=== PATIENT | female | born 1990 | race Two or more races ===

== ENCOUNTER 2020-11-01 15:11 | Emergency (ER) | payer OTHER, SELFPAY ==
--- NOTE | ~2020-11-01 | CT_ITS ---
EXAMINATION: CT HEAD WITHOUT CONTRAST CLINICAL INFORMATION: Migraine for 4 days COMPARISON: None TECHNIQUE: Contiguous axial imaging was performed from the skull base to vertex without intravenous administration of contrast. This CT examination was performed using dose optimization techniques as appropriate, variously including the following: *Automated exposure control *Adjustment of mA and/or kV according to patient size (this includes techniques or standardized protocols for targeted exams where dose is matched to indication/reason for exam; i.e. extremities or head) *Use of iterative reconstruction technique DLP: 648 mGy-cm FINDINGS: There is no evidence of acute intracranial hemorrhage or territorial infarction. No abnormal mass effect or midline shift is seen. Kat to white matter differentiation is well preserved. No extra-axial fluid collections are identified. The ventricles are normal in size. There is no abnormal attenuation within the brain parenchyma. The osseous structures and soft tissues are normal. The mastoid air cells and visualized portions of the paranasal sinuses are well aerated. CT/CT head/brain wo con IMPRESSION: No acute intracranial pathology.
[2020-11-01 15:30] VITALS: BP 133/73; PULSE 113; RESP 18; TEMP 36.5; O2SAT 100; BMI 21.4
--- NOTE | 2020-11-01 17:31 | ED.HA ---
HPI - Headache General Chief Complaint: Headache Stated Complaint: headache Time Seen by Provider: 11/01/20 16:55 Source: patient Mode of arrival: ambulatory Limitations: no limitations History of Present Illness HPI Narrative: Otherwise healthy 30-year-old female who has past medical history of anxiety and depression otherwise no surgical history presenting with complaint of 4 days of headache with gradual onset and progressively getting worse improve with sleep with associated photosensitivity and now some nausea. States onset Monday with gradual frontal headache and that progressively and slowly got worse. Symptoms wax and wane. Otherwise there is no recent illness or fever. No neck pain. No chest pain. No back pain. No history of IVDA use. no recent injury. MD elicited complaint: headache Onset (ago): day(s) (4) Onset description: gradually Location: frontal and temporal Severity: moderate Quality & Timing: aching Exacerbating factors: light and noise Relieving factors: dark room and sleep Associated symptoms: none Treatments prior to arrival: other ( States she took Excedrin for migraine headache 2 days ago but made her nauseated) Related Data Previous Rx's Medication Instructions Recorded [id number]-[id number] 1 cap PO Q8H PRN #10 cap 11/01/20 [Fioricet] Allergies Allergy/AdvReac Type Severity Reaction Status Date / Time No Known Allergies Allergy Unverified 01/23/20 16:10 Review of Systems Review of Systems: Constitutional: No Weight loss, No Fever, No Chills, No Night Sweats, No Fatigue, No Malaise ENT/Mouth: No Hearing loss, No Ear Pain, No Nasal Congestion, No Sinus Pain, No Hoarseness, No sore throat, No Rhinorrhea, No Swallowing Difficulty Eyes: No Eye Pain, No Swelling, No Redness, No Foreign Body, No Discharge, No Vision Changes Cardiovascular: No Chest Pain, No SOB, No Dyspnea on Exertion, No Orthopnea, No Edema, No Palpitations Respiratory: No Cough, No Sputum, No Wheezing, No Smoke Exposure, No Dyspnea Gastrointestinal: No Nausea, No Vomiting, No Diarrhea, No Constipation, No abdominal Pain, No Hematochezia, No Melena Genitourinary: no irregular bleeding, No Dysuria, No Urinary Frequency, No Hematuria, No Urinary Incontinence, No Urgency, No Flank Pain, No Urinary Flow Changes, No Hesitancy Musculoskeletal: No joint pain, No Myalgias, No Joint Swelling Skin: No Skin Lesions, No rash Neuro: No Weakness, No Numbness, No Paresthesias, No Loss of Consciousness, No Dizziness, + Headache Psych: No Social Issues Heme/Lymph: No Bruising, No Bleeding,No Lymphadenopathy Endocrine: No Polyuria, No Polydipsia, No Temperature Intolerance Yes all other systems are reviewed and are negative [facility] Social History Social History Alcohol intake: current Alcohol intake frequency: a few times a month Patient Tobacco Use Status: Never used Tobacco Use of substances other than those prescribed or required for medical reasons: Yes Substance Use Type: Marijuana Advance Directives: No Advance Directives Information Provided: Yes Patient : No Physical Exam Vital Signs: Vital Signs: Last Vital Signs Temp 98.9 F 11/01/20 18:07 Pulse 100 11/01/20 18:07 Resp 18 11/01/20 18:07 BP 109/53 L 11/01/20 18:07 Pulse Ox 100 11/01/20 18:07 Body Mass Index 21.4 reviewed Const: Other: for sensitivity, covering her eyes General: No acute distress or intoxicated appearing Nutritional Appearance: average body habitus Orientation/consciousness: patient oriented x3 HENMT: Head: Yes normal to inspection Ears: hearing grossly normal bilaterally Eyes: General: appearance normal, both eyes and all related structures Visual Marshall: normal visual marshall by confrontation Neck: Neck: Yes normal visual inspection, Yes full ROM, No positive Brudzinski's sign, No positive Kernig's sign and No tender Thyroid: Thyroid normal Chest: Chest palpation & inspection: normal inspection of the chest Resp: Effort & Inspection: normal respiratory effort Auscultation: clear to auscultation bilaterally Cardio: Jugular venous distension: no JVD Rhythm: regular rhythm Heart sounds: S1 normal heart sound present and S2 normal heart sound present GI: Inspection: Yes normal to inspection Palpation (GI): Soft to palpation Percussion: Yes normal to percussion Auscultation: normal bowel sounds : General: Yes no CVA tenderness Back/Spine/Pelvis: Back: no CVA tenderness Skin: General skin exam: no rashes or lesions noted Neuro: General: patient oriented x3 Extrem: General: Yes normal to inspection Course Reevaluation(s) Reevaluation #1: will check labs, given no history of headache will check CRP as well as head CT rule out mass bleed, less likely will treat with IV fluids, IV Reglan and ketorolac. Will re-evaluate. Exam does not suggest acute infectious pathology. Reevaluation #2: Labs overall reassuring. CRP within normal limits, no leukocytosis. Head CT negative. After initial treatment now an hour and a half out and she sitting up in bed smiling conversing no longer has headache, photosensitivity has resolved. Will discharge with outpatient follow-up return and discharge instructions. Otherwise well nontoxic appearing stable for discharge. MDM - Headache Differential Diagnosis Differential diagnosis: Likely migraine, tension headache and headache; Unlikely subarachnoid hemorrhage, meningitis, sinusitis and postconcussion syndrome Medical Records Attestation: I reviewed the patient's medical records. Lab Data Attestation: I reviewed the patient's lab results. Result diagrams: 11/01/20 17:49 11/01/20 17:49 Labs: Lab Results 11/01/20 11/01/20 11/01/20 Range/Units 17:49 17:49 17:49 WBC 7.1 (4.8-10.8) X10*3/uL RBC 4.38 (4.20-5.50) X10*6/uL Hgb 13.2 (12.0-16.0) g/dl Hct 38.6 (37-47) % MCV 88.1 (80-98) fL MCH 30.1 (27.0-33.0) pg MCHC 34.2 (31.0-35.0) g/dl RDW 12.2 (11.0-16.0) % Plt Count 332 (160-400) X10*3/uL MPV 8.5 L (9.4-12.3) fL Immature Gran % (Auto) 0.3 (0.0-0.4) % Neut % (Auto) 71.6 (45-73) % Lymph % (Auto) 17.3 L (20-40) % [place] % (Auto) 10.1 (2-11) % Eos % (Auto) 0.4 (0-4) % Baso % (Auto) 0.3 (0-2) % Lymph # (Auto) 1.2 (1.2-4.9) X10*3/uL [place] # (Auto) 0.7 (0.1-1.2) X10*3/uL Eos # (Auto) 0.0 (0.0-0.4) X10*3/uL Baso # (Auto) 0.0 (0.0-0.2) X10*3/uL Abs Immat Gran (auto) 0.02 (0.00-0.03) X10*3/uL Absolute Neuts (auto) 5.1 (2.0-8.3) X10*3/uL Absolute Nucleated RBC 0.000 (0.0-0.012) X10*3/uL Nucleated RBC % (auto) 0.0 (0.0-0.2) /100WBC ESR 6 (0-20) MM/HR Sodium 139 (135-145) mmol/L Potassium 4.5 (3.3-5.1) mmol/L Chloride 108 (96-108) mmol/L Carbon Dioxide 22 (22-29) mmol/L Anion Gap 14 (12-20) BUN 11 (9-16) mg/dL Creatinine 0.63 (0.5-1.4) mg/dL Estim Creat Clear Calc 95.5 Estimated GFR > 60 Random Glucose 100 (60-115) mg/dL Calcium 9.9 (8.4-10.2) mg/dL Total Bilirubin 0.7 (0.0-1.0) mg/dL AST 20 (5-31) U/L ALT 10 (0-31) U/L Alkaline Phosphatase 54 (39-117) U/L C-Reactive Protein 0.10 (< or = 0.50) mg/dL Total Protein 7.7 (6.5-8.0) g/dL Albumin 4.6 (3.5-5.0) g/dL Urine Color Urine Appearance Urine pH (5.0-8.0) Ur Specific [place] (1.005-1.025) Urine Protein (NEG-TRACE) MG/DL Urine Glucose (UA) (NEG) MG/DL Urine Ketones (NEG) MG/DL Urine Blood (NEG) Urine Nitrite (NEG) Ur Leukocyte Esterase (NEG) Urine RBC (0) /HPF Urine WBC (0-4) /HPF Ur Squamous Epith Cells /LPF Urine Bacteria /LPF Urine Mucus /LPF Urine Test (NEGATIVE) COVID-19 ([facility]ES) (Negative) COVID-19 Clin Com 11/01/20 11/01/20 11/01/20 Range/Units 17:49 18:47 18:47 WBC (4.8-10.8) X10*3/uL RBC (4.20-5.50) X10*6/uL Hgb (12.0-16.0) g/dl Hct (37-47) % MCV (80-98) fL MCH (27.0-33.0) pg MCHC (31.0-35.0) g/dl RDW (11.0-16.0) % Plt Count (160-400) X10*3/uL MPV (9.4-12.3) fL Immature Gran % (Auto) (0.0-0.4) % Neut % (Auto) (45-73) % Lymph % (Auto) (20-40) % [place] % (Auto) (2-11) % Eos % (Auto) (0-4) % Baso % (Auto) (0-2) % Lymph # (Auto) (1.2-4.9) X10*3/uL [place] # (Auto) (0.1-1.2) X10*3/uL Eos # (Auto) (0.0-0.4) X10*3/uL Baso # (Auto) (0.0-0.2) X10*3/uL Abs Immat Gran (auto) (0.00-0.03) X10*3/uL Absolute Neuts (auto) (2.0-8.3) X10*3/uL Absolute Nucleated RBC (0.0-0.012) X10*3/uL Nucleated RBC % (auto) (0.0-0.2) /100WBC ESR (0-20) MM/HR Sodium (135-145) mmol/L Potassium (3.3-5.1) mmol/L Chloride (96-108) mmol/L Carbon Dioxide (22-29) mmol/L Anion Gap (12-20) BUN (9-16) mg/dL Creatinine (0.5-1.4) mg/dL Estim Creat Clear Calc Estimated GFR Random Glucose (60-115) mg/dL Calcium (8.4-10.2) mg/dL Total Bilirubin (0.0-1.0) mg/dL AST (5-31) U/L ALT (0-31) U/L Alkaline Phosphatase (39-117) U/L C-Reactive Protein (< or = 0.50) mg/dL Total Protein (6.5-8.0) g/dL Albumin (3.5-5.0) g/dL Urine Color YELLOW Urine Appearance CLEAR Urine pH 5.5 (5.0-8.0) Ur Specific [place] >= 1.030 H (1.005-1.025) Urine Protein TRACE (NEG-TRACE) MG/DL Urine Glucose (UA) NEG (NEG) MG/DL Urine Ketones 40 (NEG) MG/DL Urine Blood 3+ H (NEG) Urine Nitrite NEG (NEG) Ur Leukocyte Esterase NEG (NEG) Urine RBC 5-9 H (0) /HPF Urine WBC 0-2 (0-4) /HPF Ur Squamous Epith Cells 2+ /LPF Urine Bacteria 1+ /LPF Urine Mucus 2+ /LPF Urine Test NEGATIVE (NEGATIVE) COVID-19 ([facility]ES) Negative (Negative) COVID-19 Clin Com See Note Imaging Data CT scan - head: Radiologist's impression: [address] Scan ReportSigned Patient: Taras Squires#: [id number]: 1990Acct:[id number]/Sex: 30 / FADM Date: 11/01/20Loc: [address] Dr: Ordering Physician: Anselmo Lawson NP Date of Service: 11/01/20 Procedure(s): CT head/brain wo con Accession Number(s): [id number] cc: Anselmo Lawson NP~ EXAMINATION: CT HEAD WITHOUT CONTRAST CLINICAL INFORMATION: Migraine for 4 days COMPARISON: None TECHNIQUE: Contiguous axial imaging was performed from the skull base to vertex without intravenous administration of contrast. This CT examination was performed using dose optimization techniques as appropriate, variously including the following: *Automated exposure control *Adjustment of mA and/or kV according to patient size (this includes techniques or standardized protocols for targeted exams where dose is matched to indication/reason for exam; i.e. extremities or head) *Use of iterative reconstruction technique DLP: 648 mGy-cm FINDINGS: There is no evidence of acute intracranial hemorrhage or territorial infarction. No abnormal mass effect or midline shift is seen. Kat to white matter differentiation is well preserved. No extra-axial fluid collections are identified. The ventricles are normal in size. There is no abnormal attenuation within the brain parenchyma. The osseous structures and soft tissues are normal. The mastoid air cells and visualized portions of the paranasal sinuses are well aerated. CT/CT head/brain wo con IMPRESSION: No acute intracranial pathology. Dictated By:MICHAEL CORADO MDSigned By:<Electronically signed by MICHAEL CORADO MD in OV>11/01/201942 DD/ 1732TD/TT: Insurance Claim Representative: TF Discharge Plan Discharge Clinical Impression: Headache Patient Disposition: Home, Self-Care Instructions: Acute Headache (ED) Prescriptions: New agizetywuf-bgfdypwfrqdqc-mvdi [Fioricet] 50-300-40 mg capsule 1 cap PO Q8H PRN (Reason: pain) Qty: 10 RF: 0 Referrals: Anika Boone MD [Primary Care Provider] - 5 days Stand Alone Forms: Work/School Release
[2020-11-01 17:52] LABS: MANUAL DIFF FLAG NO
[2020-11-01] MEDS: 0.9 % Sodium Chloride 1,000 ML 999 ML IV (17:54)
[2020-11-01] MEDS: Metoclopramide HCl 10 MG/2 ML VIAL IVPUSH (17:55)
[2020-11-01] MEDS: Ketorolac Tromethamine 30 MG/ML VIAL IVPUSH (17:55)
[2020-11-01] MEDS: diphenhydrAMINE HCL 50 MG/ML VIAL 25 MG IVPUSH (17:55)
[2020-11-01 17:57] LABS: Basophils Percent Auto 0.3 % (0-2); Eosinophils Percent Auto 0.4 % (0-4); Hematocrit 38.6 % (37-47); Hemoglobin 13.2 g/dl (12.0-16.0); Imm Gran Abs Auto 0.02 X10*3/uL (0.00-0.03); Imm Gran Pct Auto 0.3 % (0.0-0.4); Lymphocytes Absolute Auto 1.2 X10*3/uL (1.2-4.9); Lymphocytes Percent Auto 17.3 % (20-40); Mean Corpuscular HGB Conc 34.2 g/dl (31.0-35.0); Mean Corpuscular Hemoglobin 30.1 pg (27.0-33.0); Mean Corpuscular Volume 88.1 fL (80-98); Mean Platelet Volume 8.5 fL (9.4-12.3); Monocytes Absolute Auto 0.7 X10*3/uL (0.1-1.2); Monocytes Percent Auto 10.1 % (2-11); Neutrophils Absolute Auto 5.1 X10*3/uL (2.0-8.3); Neutrophils Percent Auto 71.6 % (45-73); Platelet Count 332 X10*3/uL (160-400); Red Blood Count 4.38 X10*6/uL (4.20-5.50); Red Cell Distribution Width 12.2 % (11.0-16.0); White Blood Count 7.1 X10*3/uL (4.8-10.8)
[2020-11-01 18:07] VITALS: BP 109/53; PULSE 100; RESP 18; TEMP 37.2; O2SAT 100
[2020-11-01 18:07] LABS: COVID-19 Test Negative (Negative); IDNOW Serial# 9DD0AD1C
[2020-11-01 18:21] LABS: Alanine Aminotransferase 10 U/L (0-31); Albumin Level 4.6 g/dL (3.5-5.0); Alkaline Phosphatase 54 U/L (39-117); Anion Gap 14 (12-20); Aspartate Amino Transferase 20 U/L (5-31); Bilirubin Total 0.7 mg/dL (0.0-1.0); Blood Urea Nitrogen 11 mg/dL (9-16); Calcium 9.9 mg/dL (8.4-10.2); Carbon Dioxide 22 mmol/L (22-29); Chloride 108 mmol/L (96-108); Creatinine Clr Calc Pharmacy 95.5; Estimated Glomerular Filt Rate > 60; Glucose Random 100 mg/dL (60-115); Potassium 4.5 mmol/L (3.3-5.1); Sodium 139 mmol/L (135-145); Total Protein 7.7 g/dL (6.5-8.0)
[2020-11-01 18:42] LABS: Erythrocyte Sedimentation Rate 6 MM/HR (0-20)
[2020-11-01 18:55] LABS: Glucose Urine UA NEG (NEG); Leukocyte Esterase Urine NEG (NEG); Nitrite Urine NEG (NEG); PH 5.5 (5.0-8.0); Specific Gravity - Urine >= 1.030 (1.005-1.025); Urine Blood 3+ (NEG); Urine Ketones 40 MG/DL (NEG); Urine Protein TRACE MG/DL (NEG-TRACE)
[2020-11-01 18:58] LABS: Appearance Urine CLEAR; Color Urine YELLOW
[2020-11-01 18:59] LABS: UPreg QC Valid YES; Urine Pregnancy NEGATIVE (NEGATIVE)
[2020-11-01 19:11] LABS: Bacteria Urine 1+ /LPF; Squamous Epithelial Cell Urine 2+ /LPF; WBC Urine 0-2 /HPF (0-4)
[2020-11-01 19:12] LABS: Mucus Urine 2+ /LPF
== END 2020-11-01 20:16 | disposition home or self-care (01) ==
PROVIDERS: Nurse Practitioner Primary Care; Emergency Provider Internal Medicine; PCP Internal Medicine
DX: R51.9 Headache, unspecified (principal); Z20.822 Contact with and (suspected) exposure to COVID-19; F12.90 Cannabis use, unspecified, uncomplicated
CPT/HCPCS: 36415; 70450; 80053; 81001; 81025; 85025; 85652; 86140; 87635; 96361; 96374; 96375; 99284; 99285; J1200; J1885; J2765

== ENCOUNTER 2020-11-04 11:48 | Emergency (ER) | payer OTHER, SELFPAY ==
[2020-11-04 12:32] VITALS: BP 116/65; PULSE 120; RESP 18; TEMP 36.8; O2SAT 98; BMI 21.4
[2020-11-04 15:56] VITALS: BP 116/68; PULSE 111; RESP 18; TEMP 36.7; O2SAT 99
--- NOTE | 2020-11-04 16:53 | ED_ITS ---
HPI - Headache General Chief Complaint: Headache Stated Complaint: vomiting Time Seen by Provider: 11/04/20 16:39 Source: patient Mode of arrival: ambulatory Limitations: no limitations History of Present Illness HPI Narrative: patient comes emergency room complaining of a headache for a week. Patient states the light bothers her, has been complaining of nausea and vomiting. patient was seen here on November 01, treated for a headache, patient states that initially she started feeling better, but once she got home, she starting feeling worse again. Patient was sent home with a prescription of Fioricet, has been taking Fioricet, NSAID and Tylenol with no relief. Patient denies fever or chills, patient states that she has mild neck pain. Patient states she has never had a migraine before, she does not have any family history of migraine headaches. Patient denies being sick lately. MD elicited complaint: headache Related Data Previous Rx's Medication Instructions Recorded [id number]-qfpfywondqvsh-jkfk 1 cap PO Q8H PRN #10 cap 11/01/20 [Fioricet] ketorolac 10 mg PO Q6H PRN 5 Days #10 tab 11/04/20 ketorolac 10 mg PO Q6H PRN 5 Days #10 tab 11/04/20 Allergies Allergy/AdvReac Type Severity Reaction Status Date / Time No Known Allergies Allergy Unverified 01/23/20 16:10 Review of Systems Review of Systems: Constitutional : No Weight loss, No Fever, No Chills, No Night Sweats, No Fatigue, No Malaise ENT/Mouth : No Hearing loss, No Ear Pain, No Nasal Congestion, No Sinus Pain, No Hoarseness, No sore throat, No Rhinorrhea, No Swallowing Difficulty Eyes: No Eye Pain, No Swelling, No Redness, No Foreign Body, No Discharge, No Vision Changes Cardiovascular : No Chest Pain, No SOB, No Dyspnea on Exertion, No Orthopnea, No Edema, No Palpitations Respiratory : No Cough, No Sputum, No Wheezing, No Smoke Exposure, No Dyspnea Gastrointestinal : No Nausea, No Vomiting, No Diarrhea, No Constipation, No abdominal Pain, No Hematochezia, No Melena Genitourinary : no irregular bleeding, No Dysuria, No Urinary Frequency, No Hematuria, No Urinary Incontinence, No Urgency, No Flank Pain, No Urinary Flow Changes, No Hesitancy Musculoskeletal : No joint pain, No Myalgias, No Joint Swelling Skin : No Skin Lesions, No rash Neuro : No Weakness, No Numbness, No Paresthesias, Denies loss of consciousness, patient complaining of a global headache, radiating towards her neck Psych : No Anxiety/Panic, No Depression, No SI/HI/AH/VH, No Social Issues, Heme/Lymph: No Bruising, No Bleeding,No Lymphadenopathy Endocrine : No Polyuria, No Polydipsia, No Temperature Intolerance [facility] Social History Social History Alcohol intake: current Alcohol intake frequency: does not drink Patient Tobacco Use Status: Never used Tobacco Use of substances other than those prescribed or required for medical reasons: Yes Substance Use Type: Marijuana Advance Directives: No Advance Directives Information Provided: Yes Physical Exam Vital Signs: Vital Signs: Last Vital Signs Temp 98.5 F 11/04/20 18:03 Pulse 108 H 11/04/20 18:03 Resp 16 11/04/20 18:03 BP 105/42 L 11/04/20 18:03 Pulse Ox 100 11/04/20 18:03 Body Mass Index 21.4 Appearance: Alert. Oriented X3. No acute distress. Eyes: Pupils equal, round and reactive to light. positive photophobia ENT: Pharynx normal. Neck: Normal inspection. Neck supple. No lymph nodes noted. No crepitus CVS: Normal heart rate and rhythm. Pulses normal. Normal S1 and S2 Respiratory: No respiratory distress. Breath sounds normal. No Wheezing. No rales Abdomen: Soft and nontender. No rigidity. No distention. Skin: Skin warm and dry. Normal skin color. Normal skin turgor. Extremities: No lower extremity edema. No lower extremity edema. No Laceration s. No Rash Neuro: Oriented X 3. No motor deficit. No sensory deficit. Moving all extermities. No slurred speech. Course Course Course Narrative: I discussed with the patient that we will repeat the migraine treatment. however, if there is no improvement, lumbar puncture may be needed. at this time, 19:11, patient states that she feels much better, she feels a little strange but has significant improvement. Patient states that the headache is 3 or 4/10, feels much better, talking on the phone, No longer having photophobia, no longer having neck tension/pain patient was given 1 dose of p.o. of sumatriptan, patient feeling better. Patient is for discharge MDM - Headache Lab Data Result diagrams: 11/04/20 16:59 11/04/20 16:59 Labs: Lab Results 11/04/20 11/04/20 Range/Units 16:59 16:59 WBC 5.0 (4.8-10.8) X10*3/uL RBC 4.18 L (4.20-5.50) X10*6/uL Hgb 12.3 (12.0-16.0) g/dl Hct 36.9 L (37-47) % MCV 88.3 (80-98) fL MCH 29.4 (27.0-33.0) pg MCHC 33.3 (31.0-35.0) g/dl RDW 12.0 (11.0-16.0) % Plt Count 298 (160-400) X10*3/uL MPV 8.3 L (9.4-12.3) fL Immature Gran % (Auto) 0.4 (0.0-0.4) % Neut % (Auto) 49.6 (45-73) % Lymph % (Auto) 34.2 (20-40) % [place] % (Auto) 15.2 H (2-11) % Eos % (Auto) 0.2 (0-4) % Baso % (Auto) 0.4 (0-2) % Lymph # (Auto) 1.7 (1.2-4.9) X10*3/uL [place] # (Auto) 0.8 (0.1-1.2) X10*3/uL Eos # (Auto) 0.0 (0.0-0.4) X10*3/uL Baso # (Auto) 0.0 (0.0-0.2) X10*3/uL Abs Immat Gran (auto) 0.02 (0.00-0.03) X10*3/uL Absolute Neuts (auto) 2.5 (2.0-8.3) X10*3/uL Absolute Nucleated RBC 0.000 (0.0-0.012) X10*3/uL Nucleated RBC % (auto) 0.0 (0.0-0.2) /100WBC Sodium 138 (135-145) mmol/L Potassium 4.3 (3.3-5.1) mmol/L Chloride 109 H (96-108) mmol/L Carbon Dioxide 17 L (22-29) mmol/L Anion Gap 16 (12-20) BUN 12 (9-16) mg/dL Creatinine 0.67 (0.5-1.4) mg/dL Estim Creat Clear Calc 89.8 Estimated GFR > 60 Random Glucose 99 (60-115) mg/dL Calcium 9.5 (8.4-10.2) mg/dL Total Bilirubin 0.5 (0.0-1.0) mg/dL Direct Bilirubin 0.2 (0.0-0.5) mg/dL AST 13 (5-31) U/L ALT 9 (0-31) U/L Alkaline Phosphatase 57 (39-117) U/L Total Protein 7.0 (6.5-8.0) g/dL Albumin 4.3 (3.5-5.0) g/dL Beta HCG, Quant < 2 mIU/mL Discharge Plan Discharge Clinical Impression: Migraine Patient Disposition: Home, Self-Care Instructions: Migraine Headache (ED) Additional Instructions: Please follow-up with your primary care physician tomorrow. If you have any worsening or new symptoms, please return to the emergency room or call 911 Prescriptions: New ketorolac 10 mg tablet 10 mg PO Q6H PRN (Reason: pain) 5 Days Qty: 10 RF: 0 ketorolac 10 mg tablet 10 mg PO Q6H PRN (Reason: pain) 5 Days Qty: 10 RF: 0 No Action kgbpkifadl-ohyfhafhkigfu-olhz [Fioricet] 50-300-40 mg capsule 1 cap PO Q8H PRN (Reason: pain) Qty: 10 RF: 0
[2020-11-04 17:03] LABS: MANUAL DIFF FLAG NO
[2020-11-04] MEDS: diphenhydrAMINE HCL 50 MG/ML VIAL IVPUSH (17:04)
[2020-11-04] MEDS: Ketorolac Tromethamine 30 MG/ML VIAL IVPUSH (17:04)
[2020-11-04] MEDS: 0.9 % Sodium Chloride 1,000 ML 999 ML IVCONT (17:04)
[2020-11-04] MEDS: Metoclopramide HCl 10 MG/2 ML VIAL IVPUSH (17:04)
[2020-11-04 17:06] LABS: Basophils Percent Auto 0.4 % (0-2); Eosinophils Percent Auto 0.2 % (0-4); Hematocrit 36.9 % (37-47); Hemoglobin 12.3 g/dl (12.0-16.0); Imm Gran Abs Auto 0.02 X10*3/uL (0.00-0.03); Imm Gran Pct Auto 0.4 % (0.0-0.4); Lymphocytes Absolute Auto 1.7 X10*3/uL (1.2-4.9); Lymphocytes Percent Auto 34.2 % (20-40); Mean Corpuscular HGB Conc 33.3 g/dl (31.0-35.0); Mean Corpuscular Hemoglobin 29.4 pg (27.0-33.0); Mean Corpuscular Volume 88.3 fL (80-98); Mean Platelet Volume 8.3 fL (9.4-12.3); Monocytes Absolute Auto 0.8 X10*3/uL (0.1-1.2); Monocytes Percent Auto 15.2 % (2-11); Neutrophils Absolute Auto 2.5 X10*3/uL (2.0-8.3); Neutrophils Percent Auto 49.6 % (45-73); Platelet Count 298 X10*3/uL (160-400); Red Blood Count 4.18 X10*6/uL (4.20-5.50)
[2020-11-04 17:36] LABS: Alanine Aminotransferase 9 U/L (0-31); Albumin Level 4.3 g/dL (3.5-5.0); Alkaline Phosphatase 57 U/L (39-117); Anion Gap 16 (12-20); Aspartate Amino Transferase 13 U/L (5-31); Bilirubin Direct 0.2 mg/dL (0.0-0.5); Bilirubin Total 0.5 mg/dL (0.0-1.0); Blood Urea Nitrogen 12 mg/dL (9-16); Calcium 9.5 mg/dL (8.4-10.2); Carbon Dioxide 17 mmol/L (22-29); Chloride 109 mmol/L (96-108); Creatinine Clr Calc Pharmacy 89.8; Estimated Glomerular Filt Rate > 60; Glucose Random 99 mg/dL (60-115); Potassium 4.3 mmol/L (3.3-5.1); Sodium 138 mmol/L (135-145)
[2020-11-04 17:42] LABS: HCG Quantitative < 2 mIU/mL
[2020-11-04 18:03] VITALS: BP 105/42; PULSE 108; RESP 16; TEMP 36.9; O2SAT 100
--- NOTE | 2020-11-04 19:34 | PC.NURSE ---
Spoke with Kurt (from pharmacy) to bring Imitrex 100mg to ED. Medication not available in ED Pyxis. Plan to medicate upon receipt.
[2020-11-04] MEDS: SUMAtriptan succinate 100 MG TABLET PO (20:15)
== END 2020-11-04 21:22 | disposition home or self-care (01) ==
PROVIDERS: Emergency Provider Emergency Medicine; PCP Internal Medicine
DX: G43.009 Migraine without aura, not intractable, without status migrainosus (principal)
CPT/HCPCS: 36415; 80048; 80076; 84702; 85025; 96361; 96374; 96375; 99284; J1200; J1885; J2765

== ENCOUNTER 2020-11-06 23:41 | Emergency (ER) | payer OTHER, SELFPAY ==
[2020-11-07 00:11] VITALS: BP 131/76; PULSE 122; RESP 18; TEMP 36.6; O2SAT 98; BMI 19.9
[2020-11-07] MEDS: 0.9 % Sodium Chloride 1,000 ML 999 ML IV ×2 (00:37→01:52)
[2020-11-07 00:43] LABS: Basophils Percent Auto 0.1 % (0-2); Hematocrit 38.4 % (37-47); Hemoglobin 13.1 g/dl (12.0-16.0); Imm Gran Abs Auto 0.03 X10*3/uL (0.00-0.03); Imm Gran Pct Auto 0.4 % (0.0-0.4); Lymphocytes Absolute Auto 0.5 X10*3/uL (1.2-4.9); Lymphocytes Percent Auto 6.9 % (20-40); Mean Corpuscular HGB Conc 34.1 g/dl (31.0-35.0); Mean Corpuscular Hemoglobin 29.8 pg (27.0-33.0); Mean Corpuscular Volume 87.5 fL (80-98); Mean Platelet Volume 8.5 fL (9.4-12.3); Monocytes Absolute Auto 0.1 X10*3/uL (0.1-1.2); Monocytes Percent Auto 1.6 % (2-11); Neutrophils Absolute Auto 6.9 X10*3/uL (2.0-8.3); Platelet Count 336 X10*3/uL (160-400); Red Blood Count 4.39 X10*6/uL (4.20-5.50); Red Cell Distribution Width 11.9 % (11.0-16.0); SCAN SMEAR FLAG 1; White Blood Count 7.5 X10*3/uL (4.8-10.8)
[2020-11-07 00:49] LABS: MANUAL DIFF FLAG SCAN
[2020-11-07 01:06] LABS: SLIDE REVIEW VERIFIED
--- NOTE | 2020-11-07 01:29 | ED_ITS ---
HPI - Nausea/Vomiting/Diarrhea General Chief complaint: Headache Stated complaint: headache/vomiting Time Seen by Provider: 11/07/20 01:29 Source: patient and family Mode of arrival: ambulatory History of Present Illness HPI Narrative: 30-year-old female who presents with 1 week of intermittent nausea, vomiting without abdominal pain or diarrhea and patient denies any urinary pain/ burning / frequency. In addition, patient denies any ear pain and states that the sore throat only occurred after the multiple episodes of nausea and vomiting. Otherwise, she denies any shortness of breath, chest pain/palpitations. Related Data Home Medications Medication Instructions Recorded Confirmed citalopram 10 mg tablet 10 mg PO DAILY 11/06/20 11/06/20 hydroxyzine HCl 25 mg tablet 25 mg PO DAILY 11/06/20 11/06/20 Previous Rx's Medication Instructions Recorded ketorolac 10 mg PO Q6H PRN 5 Days #10 tab 11/04/20 ketorolac 10 mg PO Q6H PRN 5 Days #10 tab 11/04/20 azithromycin 250 mg tablet See Rx Instructions PO .COMPLEX #6 11/06/20 tab prednisone 20 mg tablet 20 mg PO .COMPLEX #18 tab 11/06/20 prochlorperazine maleate 10 mg 10 mg PO Q8H PRN #20 tab 11/06/20 tablet Allergies Allergy/AdvReac Type Severity Reaction Status Date / Time No Known Allergies Allergy Verified 11/07/20 00:19 Review of Systems Review of Systems: Pertinent positives and negatives as stated in HPI 10 point review of systems is otherwise negative. PMFSH Past Medical History Source: nursing notes reviewed Social History Social History Alcohol intake: current Alcohol intake frequency: does not drink Patient Tobacco Use Status: Never used Tobacco Substance Use Type: Marijuana Advance Directives: No Advance Directives Information Provided: No Patient : No Physical Exam Vital Signs: Vital Signs: Last Vital Signs Temp 97.9 F 11/07/20 00:11 Pulse 103 H 11/07/20 02:35 Resp 18 11/07/20 02:35 BP 104/45 L 11/07/20 02:35 Pulse Ox 100 11/07/20 02:35 Body Mass Index 19.9 VITAL SIGNS: Reviewed. GENERAL: Well developed, well nourished, in no acute distress. HEAD: Normocephalic/atraumatic EYES: PERRLA, EOMI OROPHARYNX: no oral lesions noted, posterior pharynx clear , dry mucosa NECK: Supple, no adenopathy LUNGS: Normal breath sounds. No adventitious sounds or accessory muscle use. SpO2<98> CARDIOVASCULAR: Regular rate and rhythm without noted murmurs ABDOMEN: Soft, non-tender, non-distended with bowel sounds. SKIN: Inspection of the skin reveals no rashes NEUROLOGIC: Alert and oriented x 4. Course Course Course Narrative: 30-year-old female with multiple episodes of nausea and vomiting suspect may be marijuana related and likely has subsequent dehydration. Review of all investigations without acute findings and on re-evaluation patient's headache has resolved and she is no longer nauseous. She has tolerated oral intake and will be discharged home in stable condition with instructions to increase her oral hydration. MDM - Nausea/Vomiting/Diarrhea Lab Data Result diagrams: 11/07/20 00:34 11/07/20 00:34 Labs: Lab Results 11/07/20 11/07/20 11/07/20 Range/Units 00:34 00:34 02:06 WBC 7.5 (4.8-10.8) X10*3/uL RBC 4.39 (4.20-5.50) X10*6/uL Hgb 13.1 (12.0-16.0) g/dl Hct 38.4 (37-47) % MCV 87.5 (80-98) fL MCH 29.8 (27.0-33.0) pg MCHC 34.1 (31.0-35.0) g/dl RDW 11.9 (11.0-16.0) % Plt Count 336 (160-400) X10*3/uL MPV 8.5 L (9.4-12.3) fL Immature Gran % (Auto) 0.4 (0.0-0.4) % Neut % (Auto) 91.0 H (45-73) % Lymph % (Auto) 6.9 L (20-40) % [place] % (Auto) 1.6 L (2-11) % Eos % (Auto) 0.0 (0-4) % Baso % (Auto) 0.1 (0-2) % Lymph # (Auto) 0.5 L (1.2-4.9) X10*3/uL [place] # (Auto) 0.1 (0.1-1.2) X10*3/uL Eos # (Auto) 0.0 (0.0-0.4) X10*3/uL Baso # (Auto) 0.0 (0.0-0.2) X10*3/uL Abs Immat Gran (auto) 0.03 (0.00-0.03) X10*3/uL Absolute Neuts (auto) 6.9 (2.0-8.3) X10*3/uL Absolute Nucleated RBC 0.000 (0.0-0.012) X10*3/uL Nucleated RBC % (auto) 0.0 (0.0-0.2) /100WBC Smear Tech's Comments VERIFIED Sodium 136 (135-145) mmol/L Potassium 4.6 (3.3-5.1) mmol/L Chloride 109 H (96-108) mmol/L Carbon Dioxide 11 L (22-29) mmol/L Anion Gap 21 H (12-20) BUN 11 (9-16) mg/dL Creatinine 0.66 (0.5-1.4) mg/dL Estim Creat Clear Calc 91.1 Estimated GFR > 60 Random Glucose 84 (60-115) mg/dL Calcium 9.9 (8.4-10.2) mg/dL Urine Color Urine Appearance Urine pH (5.0-8.0) Ur Specific [place] (1.005-1.025) Urine Protein (NEG-TRACE) MG/DL Urine Glucose (UA) (NEG) MG/DL Urine Ketones (NEG) MG/DL Urine Blood (NEG) Urine Nitrite (NEG) Ur Leukocyte Esterase (NEG) Urine RBC (0) /HPF Urine WBC (0-4) /HPF Ur Squamous Epith Cells /LPF Urine Bacteria /LPF Urine Mucus /LPF Urine Test NEGATIVE (NEGATIVE) 11/07/20 Range/Units 02:06 WBC (4.8-10.8) X10*3/uL RBC (4.20-5.50) X10*6/uL Hgb (12.0-16.0) g/dl Hct (37-47) % MCV (80-98) fL MCH (27.0-33.0) pg MCHC (31.0-35.0) g/dl RDW (11.0-16.0) % Plt Count (160-400) X10*3/uL MPV (9.4-12.3) fL Immature Gran % (Auto) (0.0-0.4) % Neut % (Auto) (45-73) % Lymph % (Auto) (20-40) % [place] % (Auto) (2-11) % Eos % (Auto) (0-4) % Baso % (Auto) (0-2) % Lymph # (Auto) (1.2-4.9) X10*3/uL [place] # (Auto) (0.1-1.2) X10*3/uL Eos # (Auto) (0.0-0.4) X10*3/uL Baso # (Auto) (0.0-0.2) X10*3/uL Abs Immat Gran (auto) (0.00-0.03) X10*3/uL Absolute Neuts (auto) (2.0-8.3) X10*3/uL Absolute Nucleated RBC (0.0-0.012) X10*3/uL Nucleated RBC % (auto) (0.0-0.2) /100WBC Smear Tech's Comments Sodium (135-145) mmol/L Potassium (3.3-5.1) mmol/L Chloride (96-108) mmol/L Carbon Dioxide (22-29) mmol/L Anion Gap (12-20) BUN (9-16) mg/dL Creatinine (0.5-1.4) mg/dL Estim Creat Clear Calc Estimated GFR Random Glucose (60-115) mg/dL Calcium (8.4-10.2) mg/dL Urine Color YELLOW Urine Appearance CLEAR Urine pH 6.0 (5.0-8.0) Ur Specific [place] >= 1.030 H (1.005-1.025) Urine Protein TRACE (NEG-TRACE) MG/DL Urine Glucose (UA) NEG (NEG) MG/DL Urine Ketones >=80 (NEG) MG/DL Urine Blood 3+ H (NEG) Urine Nitrite NEG (NEG) Ur Leukocyte Esterase NEG (NEG) Urine RBC 5-9 H (0) /HPF Urine WBC 0-2 (0-4) /HPF Ur Squamous Epith Cells TRACE /LPF Urine Bacteria TRACE /LPF Urine Mucus 1+ /LPF Urine Test (NEGATIVE) Discharge Plan Discharge Clinical Impression: Headache, Nausea & vomiting Patient Disposition: Home, Self-Care Instructions: General Headache (ED), Acute Nausea and Vomiting (ED) Additional Instructions: 1. Recommend continuing with the medications you have been prescribed by Urgent Care for your nausea and headache. 2. Increase fluid hydration especially with water over the next 1-2 days. 3. Please follow-up with your primary care provider in the next 2-3 days for re- evaluation. Return to the ER for acute worsening of symptoms. Prescriptions: No Action ketorolac 10 mg tablet 10 mg PO Q6H PRN (Reason: pain) 5 Days Qty: 10 RF: 0 ketorolac 10 mg tablet 10 mg PO Q6H PRN (Reason: pain) 5 Days Qty: 10 RF: 0 citalopram 10 mg tablet 10 mg PO DAILY RF: 0 hydroxyzine HCl 25 mg tablet 25 mg PO DAILY RF: 0 prednisone 20 mg tablet 20 mg PO .COMPLEX Qty: 18 RF: 0 azithromycin 250 mg tablet See Rx Instructions PO .COMPLEX Qty: 6 RF: 0 prochlorperazine maleate [Compazine] 10 mg tablet 10 mg PO Q8H PRN (Reason: nausea and vomiting) Qty: 20 RF: 0 Referrals: Anika Boone MD [Primary Care Provider] - 2 days
[2020-11-07 01:39] LABS: Anion Gap 21 (12-20); Blood Urea Nitrogen 11 mg/dL (9-16); Calcium 9.9 mg/dL (8.4-10.2); Carbon Dioxide 11 mmol/L (22-29); Chloride 109 mmol/L (96-108); Creatinine Clr Calc Pharmacy 91.1; Estimated Glomerular Filt Rate > 60; Glucose Random 84 mg/dL (60-115); Potassium 4.6 mmol/L (3.3-5.1); Sodium 136 mmol/L (135-145)
[2020-11-07] MEDS: Metoclopramide HCl 10 MG/2 ML VIAL IVPUSH (01:52)
[2020-11-07] MEDS: Ketorolac Tromethamine 15 MG/ML VIAL IVPUSH (01:52)
[2020-11-07] MEDS: diphenhydrAMINE HCL 50 MG/ML VIAL 25 MG IVPUSH (01:52)
[2020-11-07] MEDS: ondansetron HCL 4 MG/2 ML VIAL IVPUSH (01:52)
[2020-11-07 02:28] LABS: Glucose Urine UA NEG (NEG); Leukocyte Esterase Urine NEG (NEG); Nitrite Urine NEG (NEG); Specific Gravity - Urine >= 1.030 (1.005-1.025); Urine Blood 3+ (NEG); Urine Ketones >=80 MG/DL (NEG); Urine Protein TRACE MG/DL (NEG-TRACE)
[2020-11-07 02:33] LABS: Appearance Urine CLEAR; Color Urine YELLOW
[2020-11-07 02:35] VITALS: BP 104/45; PULSE 103; RESP 18; O2SAT 100
[2020-11-07 02:43] LABS: Bacteria Urine TRACE /LPF; Mucus Urine 1+ /LPF; Squamous Epithelial Cell Urine TRACE /LPF; WBC Urine 0-2 /HPF (0-4)
[2020-11-07 02:44] LABS: UPreg QC Valid YES; Urine Pregnancy NEGATIVE (NEGATIVE)
== END 2020-11-07 03:26 | disposition home or self-care (01) ==
PROVIDERS: Internal Medicine; Emergency Provider Student in an Organized Health Care Education/Training Program; PCP Internal Medicine
DX: R11.2 Nausea with vomiting, unspecified (principal); R51.9 Headache, unspecified
CPT/HCPCS: 36415; 80048; 81001; 81025; 85025; 96361; 96374; 96375; 99284; J1200; J1885; J2405; J2765

== ENCOUNTER 2020-11-08 08:25 | Inpatient (IN) | payer OTHER, SELFPAY ==
[2020-11-08] VITALS (7 sets, daily range): BP systolic 104–133; BP diastolic 50–76; PULSE 90–131; RESP 14–18; TEMP 36.1–36.9; O2SAT 98–100; BMI 20.2
--- NOTE | ~2020-11-08 | CT_ITS ---
EXAMINATION: CT HEAD WITH/WITHOUT CONTRAST CLINICAL INFORMATION: Nausea, vomiting, photophobia. Rule out cavernous sinus thrombosis, masses, infection. COMPARISON: CT head 11/01/2020. TECHNIQUE: Contiguous axial imaging was performed from the skull base to vertex before and after the administration of 85 mL of Omnipaque [address] examination was performed using dose optimization techniques as appropriate, variously including the following: *Automated exposure control *Adjustment of mA and/or kV according to patient size (this includes techniques or standardized protocols for targeted exams where dose is matched to indication/reason for exam; i.e. extremities or head) *Use of iterative reconstruction technique DLP: 1281 mGy-cm FINDINGS: There is no evidence of acute intracranial hemorrhage or territorial infarction. No abnormal mass effect or midline shift is seen. Kat to white matter differentiation is well preserved. No extra-axial fluid collections are identified. There is no abnormal enhancement. Normal enhancement of the [place]. No evidence of cavernous sinus thrombosis. No evidence of cerebral venous thrombosis. The left transverse sinus is hypoplastic. The ventricles are normal in size. There is no abnormal attenuation within the brain parenchyma. The osseous structures and soft tissues are normal. The mastoid air cells and visualized portions of the paranasal sinuses are well aerated. CT/CT head/brain wo/w con IMPRESSION: No acute intracranial pathology. If the patient has continued symptoms, MRI could be obtained for further assessment.
[2020-11-08] MEDS: 0.9 % Sodium Chloride 1,000 ML 999 ML IVCONT ×2 (08:50→09:40)
--- NOTE | 2020-11-08 09:29 | ED.NAVMDI ---
HPI - Nausea/Vomiting/Diarrhea General Chief complaint: Nausea/Vomiting/Diarrhea Stated complaint: throwing up for the past week, blood Time Seen by Provider: 11/08/20 09:17 Source: patient Mode of arrival: ambulatory History of Present Illness HPI Narrative: THIS IS A 30 YEARS OLD FEMALE PRESENTED TO EMERGENCY DEPARTMENT WITH A CHIEF COMPLAIN ON NAUSEA AND VOMITING SHE WAS SEEN YESTERDAY IN THE EMERGENCY ROOM [facility] SHOWED THAT SHE HAD METABOLIC ACIDOSIS WITH ANION GAP. TODAY RETURN BECAUSE SHE IS NO BETTER MD elicited complaint: nausea and vomiting Onset (ago): day(s) (3) Description of vomiting: bilious Associated nausea: Yes Associated abdominal pain: No Related Data Home Medications Medication Instructions Recorded Confirmed citalopram 10 mg tablet 10 mg PO DAILY 11/06/20 11/06/20 hydroxyzine HCl 25 mg tablet 25 mg PO DAILY 11/06/20 11/06/20 Previous Rx's Medication Instructions Recorded ketorolac 10 mg PO Q6H PRN 5 Days #10 tab 11/04/20 ketorolac 10 mg PO Q6H PRN 5 Days #10 tab 11/04/20 azithromycin 250 mg tablet See Rx Instructions PO .COMPLEX #6 11/06/20 tab prednisone 20 mg tablet 20 mg PO .COMPLEX #18 tab 11/06/20 prochlorperazine maleate 10 mg 10 mg PO Q8H PRN #20 tab 11/06/20 tablet Allergies Allergy/AdvReac Type Severity Reaction Status Date / Time No Known Allergies Allergy Verified 11/07/20 00:19 Review of Systems Review of Systems: Yes all other systems are reviewed and are negative Cardiovascular: Cardiovascular: Reports no additional cardiovascular complaints Respiratory: Respiratory: Reports no additional respiratory complaints and Denies cough Gastrointestinal: Gastrointestinal: Reports nausea and Reports vomiting Psychiatric: Psychiatric: Reports anxiety [facility] Social History Social History Alcohol intake: never Patient Tobacco Use Status: Never used Tobacco Substance Use Type: Marijuana Advance Directives: Yes Advance Directives Information Provided: No Advance Directives on File: No Physical Exam Vital Signs: Vital Signs: Last Vital Signs Temp 98.4 F 11/08/20 08:34 Pulse 131 H 11/08/20 08:34 Resp 18 11/08/20 08:34 BP 119/76 11/08/20 08:34 Pulse Ox 100 11/08/20 08:34 Body Mass Index 20.2 Const: General: cooperative Orientation/consciousness: oriented to person, oriented to time and patient oriented x3 HENMT: Head: Yes normal to inspection and No Ramirez's sign Eyes: General: appearance normal, both eyes and all related structures Visual Marshall: normal visual marshall by confrontation Conjunctivae: conjunctivae normal Sclerae: sclerae normal Neck: Neck: Yes normal visual inspection, Yes full ROM and Yes no lymphadenopathy Chest: Chest palpation & inspection: normal inspection of the chest Resp: Effort & Inspection: normal respiratory effort Auscultation: clear to auscultation bilaterally Cardio: Jugular venous distension: no JVD Rate: regular rate Rhythm: regular rhythm GI: Inspection: Yes normal to inspection Palpation (GI): Soft to palpation, nontender and no guarding Skin: General skin exam: no rashes or lesions noted, elasticity normal and turgor normal Neuro: General: oriented to person, oriented to place, oriented to time and patient oriented x3 Extrem: General: Yes normal to inspection and Yes full ROM Course Course Course Narrative: I discussed the case with the testing machine operator Dr Osman Fierro he recommend to start the patient on bicarbonate with D5W. patient denies any toxic ingestion, will add bhydroxibutirrate and lactic acid. The because this is the 3rd visit to the emergency department including yesterday will admit the patient MDM - Nausea/Vomiting/Diarrhea Lab Data Result diagrams: 11/08/20 09:33 11/08/20 09:33 Labs: Lab Results 11/08/20 11/08/20 11/08/20 Range/Units 09:33 09:33 09:53 WBC 9.3 (4.8-10.8) X10*3/uL RBC 4.45 (4.20-5.50) X10*6/uL Hgb 13.5 (12.0-16.0) g/dl Hct 39.7 (37-47) % MCV 89.2 (80-98) fL MCH 30.3 (27.0-33.0) pg MCHC 34.0 (31.0-35.0) g/dl RDW 11.9 (11.0-16.0) % Plt Count 421 H D (160-400) X10*3/uL MPV 8.9 L (9.4-12.3) fL Immature Gran % (Auto) 0.4 (0.0-0.4) % Neut % (Auto) 82.1 H (45-73) % Lymph % (Auto) 11.1 L (20-40) % [place] % (Auto) 6.1 (2-11) % Eos % (Auto) 0.0 (0-4) % Baso % (Auto) 0.3 (0-2) % Lymph # (Auto) 1.0 L (1.2-4.9) X10*3/uL [place] # (Auto) 0.6 (0.1-1.2) X10*3/uL Eos # (Auto) 0.0 (0.0-0.4) X10*3/uL Baso # (Auto) 0.0 (0.0-0.2) X10*3/uL Abs Immat Gran (auto) 0.04 H (0.00-0.03) X10*3/uL Absolute Neuts (auto) 7.6 (2.0-8.3) X10*3/uL Absolute Nucleated RBC 0.000 (0.0-0.012) X10*3/uL Nucleated RBC % (auto) 0.0 (0.0-0.2) /100WBC Sodium 138 (135-145) mmol/L Potassium 4.4 (3.3-5.1) mmol/L Chloride 108 (96-108) mmol/L Carbon Dioxide 10 L* (22-29) mmol/L Anion Gap 24 H (12-20) BUN 12 (9-16) mg/dL Creatinine 0.76 (0.5-1.4) mg/dL Estim Creat Clear Calc 79.1 Estimated GFR > 60 Random Glucose 92 (60-115) mg/dL Calcium 10.1 (8.4-10.2) mg/dL Total Bilirubin 0.6 (0.0-1.0) mg/dL Direct Bilirubin 0.2 (0.0-0.5) mg/dL AST 15 (5-31) U/L ALT 15 (0-31) U/L Alkaline Phosphatase 58 (39-117) U/L Total Protein 7.8 (6.5-8.0) g/dL Albumin 4.6 (3.5-5.0) g/dL Lipase 23 (8-78) U/L Beta HCG, Quant < 2 mIU/mL Urine Color YELLOW Urine Appearance HAZY Urine pH 6.0 (5.0-8.0) Ur Specific [place] >= 1.030 H (1.005-1.025) Urine Protein TRACE (NEG-TRACE) MG/DL Urine Glucose (UA) NEG (NEG) MG/DL Urine Ketones >=80 (NEG) MG/DL Urine Blood 2+ H (NEG) Urine Nitrite NEG (NEG) Ur Leukocyte Esterase NEG (NEG) Urine RBC 5-9 H (0) /HPF Urine WBC 0-2 (0-4) /HPF Ur Squamous Epith Cells 1+ /LPF Urine Bacteria 1+ /LPF Urine Mucus 1+ /LPF Discharge Plan Discharge Clinical Impression: Increased anion gap metabolic acidosis, Vomiting Prescriptions: No Action ketorolac 10 mg tablet 10 mg PO Q6H PRN (Reason: pain) 5 Days Qty: 10 RF: 0 ketorolac 10 mg tablet 10 mg PO Q6H PRN (Reason: pain) 5 Days Qty: 10 RF: 0 citalopram 10 mg tablet 10 mg PO DAILY RF: 0 hydroxyzine HCl 25 mg tablet 25 mg PO DAILY RF: 0 prednisone 20 mg tablet 20 mg PO .COMPLEX Qty: 18 RF: 0 azithromycin 250 mg tablet See Rx Instructions PO .COMPLEX Qty: 6 RF: 0 prochlorperazine maleate [Compazine] 10 mg tablet 10 mg PO Q8H PRN (Reason: nausea and vomiting) Qty: 20 RF: 0
[2020-11-08 09:37] LABS: Basophils Percent Auto 0.3 % (0-2); Hematocrit 39.7 % (37-47); Hemoglobin 13.5 g/dl (12.0-16.0); Imm Gran Abs Auto 0.04 X10*3/uL (0.00-0.03); Imm Gran Pct Auto 0.4 % (0.0-0.4); Lymphocytes Percent Auto 11.1 % (20-40); MANUAL DIFF FLAG NO; Mean Corpuscular Hemoglobin 30.3 pg (27.0-33.0); Mean Corpuscular Volume 89.2 fL (80-98); Mean Platelet Volume 8.9 fL (9.4-12.3); Monocytes Absolute Auto 0.6 X10*3/uL (0.1-1.2); Monocytes Percent Auto 6.1 % (2-11); Neutrophils Absolute Auto 7.6 X10*3/uL (2.0-8.3); Neutrophils Percent Auto 82.1 % (45-73); Platelet Count 421 X10*3/uL (160-400); Red Blood Count 4.45 X10*6/uL (4.20-5.50); Red Cell Distribution Width 11.9 % (11.0-16.0); White Blood Count 9.3 X10*3/uL (4.8-10.8)
[2020-11-08] MEDS: diphenhydrAMINE HCL 50 MG/ML VIAL 12.5 MG IVPUSH (09:40)
[2020-11-08] MEDS: Metoclopramide HCl 10 MG/2 ML VIAL IVPUSH (09:40)
[2020-11-08 09:59] LABS: Glucose Urine UA NEG (NEG); Leukocyte Esterase Urine NEG (NEG); Nitrite Urine NEG (NEG); Specific Gravity - Urine >= 1.030 (1.005-1.025); Urine Blood 2+ (NEG); Urine Ketones >=80 MG/DL (NEG); Urine Protein TRACE MG/DL (NEG-TRACE)
[2020-11-08 10:00] LABS: Appearance Urine HAZY; Color Urine YELLOW
[2020-11-08 10:06] LABS: Bacteria Urine 1+ /LPF; Mucus Urine 1+ /LPF; Squamous Epithelial Cell Urine 1+ /LPF; WBC Urine 0-2 /HPF (0-4)
[2020-11-08 10:08] LABS: HCG Quantitative < 2 mIU/mL
[2020-11-08 10:18] LABS: Alanine Aminotransferase 15 U/L (0-31); Albumin Level 4.6 g/dL (3.5-5.0); Alkaline Phosphatase 58 U/L (39-117); Anion Gap 24 (12-20); Aspartate Amino Transferase 15 U/L (5-31); Bilirubin Direct 0.2 mg/dL (0.0-0.5); Bilirubin Total 0.6 mg/dL (0.0-1.0); Blood Urea Nitrogen 12 mg/dL (9-16); Calcium 10.1 mg/dL (8.4-10.2); Carbon Dioxide 10 mmol/L (22-29); Chloride 108 mmol/L (96-108); Creatinine Clr Calc Pharmacy 79.1; Estimated Glomerular Filt Rate > 60; Glucose Random 92 mg/dL (60-115); Lipase 23 U/L (8-78); Potassium 4.4 mmol/L (3.3-5.1); Sodium 138 mmol/L (135-145); Total Protein 7.8 g/dL (6.5-8.0)
[2020-11-08 11:09] LABS: Lactic Acid 0.6 mmol/L (0.5-2.0)
[2020-11-08] MEDS: Sodium Bicarbonate 8.4% 150 MEQ in Dextrose 5 % 850 ML 100 MEQ IV ×2 (11:09→20:16)
--- NOTE | 2020-11-08 11:12 | PC.NURSE ---
INTRODUCED SELF TTO PT. REPORTS FEELING FATIGUED, DENIES NAUSEA/PAIN AT THIS TIME. MED REC COMPLETED. AWAITING ROOM ASSIGNMENT. ALL QUESTIONS ANSWERED, PT AWARE OF PLAN FOR CARE. SODIUM BICARB GTT RUNNING.
--- NOTE | 2020-11-08 11:14 | PC.NURSE ---
SANTINO AUNT [phone]
[2020-11-08 13:25] LABS: Anion Gap 18 (12-20); Chloride 112 mmol/L (96-108); Potassium 4.6 mmol/L (3.3-5.1); Sodium 137 mmol/L (135-145)
[2020-11-08 13:26] LABS: Carbon Dioxide 12 mmol/L (22-29)
[2020-11-08 14:12] LABS: Amphetamine Screen Urine Not Detected (Not Detect); Barbiturates, Urine Not Detected (Not Detect); Benzodiazepines Screen Urine Not Detected (Not Detect); Cannabinoid Screen Urine POSITIVE (Not Detect); Cocaine Screen Urine Not Detected (Not Detect); Opiate Screen Urine Not Detected (Not Detect); Phencyclidine Screen Urine Not Detected (Not Detect)
[2020-11-08 14:32] LABS: COVID-19 Test Negative (Negative)
[2020-11-08] MEDS: Lactated Ringers 1,000 ML 999 ML IV (14:58)
--- NOTE | 2020-11-08 15:07 | PC.NURSE ---
report give to medical technologist blood bank. awaiting transport. pt continues to deny nausea, pain at this time. has been sleeping comfortably this afternon.
--- NOTE | 2020-11-08 15:30 | P.HPHOSP_ITS ---
History of Present Illness Date of Service: 11/08/20 Chief Complaint: intractable nausea and vomiting, decreased p.o. intake a 30 years old lady with PMH anxiety who presents to the hospital with chief complaint of nausea and vomiting for the last week. The patient reports that her symptoms started with upper respiratory tract congestion that worsened to become a significant headache and started her to nausea vomiting episodes. She denies any fever, chills, loss conscious, chest pain, shortness of breath coughing. For the last week she intractable vomiting episode and was unable to keep anything solid down her stomach. She was able to drink water as much as she tolerates. She denies smoking required a for almost a week. The patient multiple visit to urgent care and emergencies during the last 10 days. In the emergency Today she was found to non anion gap metabolic acidosis with low blood pressure readings. Admitted for hydration and monitoring. Review of Systems Review of Systems: No fever, chills but feels weakness No chest pain, palpitation No shortness of breath or coughing No abdominal pain but complaining mainly nausea and vomiting No urinary symptoms No any rash or wounds PMFSH Social History Alcohol intake: never Patient Tobacco Use Status: Never used Tobacco Substance Use Type: Marijuana Advance Directives: Yes Advance Directives Information Provided: No Advance Directives on File: No Advance Directives Date on File: 11/08/20 Meds Allergies Allergy/AdvReac Type Severity Reaction Status Date / Time No Known Allergies Allergy Verified 11/07/20 00:19 Active Medications: Current Medications Generic Name Dose Route Start Last Admin Trade Name Rabia PRN Reason Stop Dose Admin Acetaminophen 650 mg 11/08/20 14:22 Acetaminophen 325 Mg Tablet PO Q6H PRN Pain, Mild (Pain Scale 1-3) Hydroxyzine HCl 25 mg 11/09/20 09:00 Hydroxyzine Hcl 25 Mg Tablet PO DAILY PHANI Sodium Bicarbonate 150 meq/ 1,000 mls @ 100 mls/hr 11/08/20 10:30 11/08/20 11:09 Dextrose IV 100 mls/hr .Q10H PHANI Administration Lactated Ringer's 1,000 mls @ 999 mls/hr 11/08/20 14:30 11/08/20 14:58 Lr IV 11/08/20 15:30 999 mls/hr .Q1H1M PHANI Administration Ondansetron HCl 4 mg 11/08/20 14:22 Ondansetron Hcl 4 Mg/2 Ml Vial IVPUSH Q8H PRN Nausea and Vomiting Sodium Chloride 3 ml 11/08/20 16:00 11/08/20 15:28 0.9 % Sodium Chloride Flush 3 Ml Syringe IVFLUSH Not Given QSHIFT [facility] Home Medications Medication Instructions Recorded Confirmed Last Taken Type citalopram 10 mg tablet 10 mg PO DAILY 11/06/20 11/08/20 1 Day Ago History ~11/07/20 hydroxyzine HCl 25 mg tablet 25 mg PO DAILY 11/06/20 11/08/20 1 Day Ago History ~11/07/20 Physical Exam Vital Signs and Narrative: Vital Signs: Last Vital Signs Temp 97 F 11/08/20 15:23 Pulse 104 H 11/08/20 15:23 Resp 18 11/08/20 15:23 BP 120/55 L 11/08/20 15:23 Pulse Ox 100 11/08/20 15:23 Body Mass Index 20.2 Const: Other: Constitutional : Alert, oriented, not in distress Neck : Normal inspection, Supple Cardiovascular : RRR, S1 S2, no lower extremity edema Respiratory : Good bilateral air entry, no crackles, wheezes or rhonchi Gastrointestinal: soft, lax, decrease bowel sounds, mild epigastric tenderness seems muscular in origin Skin : Warm/Dry, No rash Neurological : Alert & oriented x3, No focal deficit Results Labs CBC and Chem 7: 11/08/20 09:33 11/08/20 12:56 Labs: Laboratory Results - last 24 hr 11/08/20 11/08/20 11/08/20 09:33 09:33 09:53 MCV 89.2 MCH 30.3 MCHC 34.0 RDW 11.9 Plt Count 421 H D MPV 8.9 L Immature Gran % (Auto) 0.4 Neut % (Auto) 82.1 H Lymph % (Auto) 11.1 L [place] % (Auto) 6.1 Eos % (Auto) 0.0 Baso % (Auto) 0.3 Lymph # (Auto) 1.0 L [place] # (Auto) 0.6 Eos # (Auto) 0.0 Baso # (Auto) 0.0 Abs Immat Gran (auto) 0.04 H Absolute Neuts (auto) 7.6 Absolute Nucleated RBC 0.000 Nucleated RBC % (auto) 0.0 Anion Gap 24 H Estim Creat Clear Calc 79.1 Estimated GFR > 60 Random Glucose 92 Lactic Acid Calcium 10.1 Total Bilirubin 0.6 Direct Bilirubin 0.2 AST 15 ALT 15 Alkaline Phosphatase 58 Total Protein 7.8 Albumin 4.6 Lipase 23 Beta HCG, Quant < 2 Urine Color YELLOW Urine Appearance HAZY Urine pH 6.0 Ur Specific [place] >= 1.030 H Urine Protein TRACE Urine Glucose (UA) NEG Urine Ketones >=80 Urine Blood 2+ H Urine Nitrite NEG Ur Leukocyte Esterase NEG Urine RBC 5-9 H Urine WBC 0-2 Ur Squamous Epith Cells 1+ Urine Bacteria 1+ Urine Mucus 1+ Urine Opiates Screen Ur Barbiturates Screen Ur Phencyclidine Scrn Ur Amphetamines Screen U Benzodiazepines Scrn Urine Cocaine Screen U Marijuana (THC) Screen COVID-19 (ULISSES) COVID-19 [employer] 11/08/20 11/08/20 11/08/20 09:53 10:47 12:56 MCV MCH MCHC RDW Plt Count MPV Immature Gran % (Auto) Neut % (Auto) Lymph % (Auto) [place] % (Auto) Eos % (Auto) Baso % (Auto) Lymph # (Auto) [place] # (Auto) Eos # (Auto) Baso # (Auto) Abs Immat Gran (auto) Absolute Neuts (auto) Absolute Nucleated RBC Nucleated RBC % (auto) Anion Gap 18 Estim Creat Clear Calc Estimated GFR Random Glucose Lactic Acid 0.6 Calcium Total Bilirubin Direct Bilirubin AST ALT Alkaline Phosphatase Total Protein Albumin Lipase Beta HCG, Quant Urine Color Urine Appearance Urine pH Ur Specific [place] Urine Protein Urine Glucose (UA) Urine Ketones Urine Blood Urine Nitrite Ur Leukocyte Esterase Urine RBC Urine WBC Ur Squamous Epith Cells Urine Bacteria Urine Mucus Urine Opiates Screen Not Detected Ur Barbiturates Screen Not Detected Ur Phencyclidine Scrn Not Detected Ur Amphetamines Screen Not Detected U Benzodiazepines Scrn Not Detected Urine Cocaine Screen Not Detected U Marijuana (THC) Screen POSITIVE H COVID-19 (ULISSES) COVID-19 [employer] 11/08/20 13:57 MCV MCH MCHC RDW Plt Count MPV Immature Gran % (Auto) Neut % (Auto) Lymph % (Auto) [place] % (Auto) Eos % (Auto) Baso % (Auto) Lymph # (Auto) [place] # (Auto) Eos # (Auto) Baso # (Auto) Abs Immat Gran (auto) Absolute Neuts (auto) Absolute Nucleated RBC Nucleated RBC % (auto) Anion Gap Estim Creat Clear Calc Estimated GFR Random Glucose Lactic Acid Calcium Total Bilirubin Direct Bilirubin AST ALT Alkaline Phosphatase Total Protein Albumin Lipase Beta HCG, Quant Urine Color Urine Appearance Urine pH Ur Specific [place] Urine Protein Urine Glucose (UA) Urine Ketones Urine Blood Urine Nitrite Ur Leukocyte Esterase Urine RBC Urine WBC Ur Squamous Epith Cells Urine Bacteria Urine Mucus Urine Opiates Screen Ur Barbiturates Screen Ur Phencyclidine Scrn Ur Amphetamines Screen U Benzodiazepines Scrn Urine Cocaine Screen U Marijuana (THC) Screen COVID-19 (ULISSES) Negative COVID-19 Clin Com See Note Assessment and Plan (1) Increased anion gap metabolic acidosis: Status: Acute (2) Vomiting: Status: Acute (3) Headache: Status: Acute a 30 years old lady with PMH anxiety who presents to the hospital with chief complaint of nausea and vomiting for the last week. Non anion gap metabolic acidosis Secondary to excessive vomiting To replace with bicarb drip Monitor BMP Intractable nausea and vomiting Seems to be related to viral illness she a quiet last week Abdominal exam is benign with no alarming signs IV fluids Zofran as needed Start with clear liquids and advanced diet as tolerated Headache Related upper respiratory tract infection and possible sinus infection To use Lorcet as needed Anxiety Use Atarax as needed DVT PPX Early ambulation Quality Stroke Does the patient have a stroke diagnosis?: No VTE Prior VTE?: No VTE Risk Level:: Medical - low VTE Device Contraindication: Treatment Not Indicated VTE Drug Contraindication: Treatment Not Indicated
--- NOTE | 2020-11-08 15:56 | P.CONNP_ITS ---
History of Present Illness Reason for Consult Consult date: 11/08/20 Reason for consult: Metabolic Acidosis Chief Complaint Chief complaint: Intractable nausea and vomiting Lightheadedness History of Present Illness Narrative: Ms. Macy Squires is a 30-year-old female with past medical history of migraines and anxiety who presents to the ED on 11/08/2020 with intractable nausea and vomiting for over 1 week, in the setting of URI symptoms about 1 week ago. She denies Hematuria, Hematemesis, and Oliguria. She does however report reduced PO intake. She denies eoth misuse, tylenol over use and toxic alochol ingestion. Review of Systems Review of Systems No fever, chills but feels weakness No chest pain, palpitation No shortness of breath or coughing No abdominal pain but complaining mainly nausea and vomiting No urinary symptoms No any rash or wounds Yes all other systems are reviewed and are negative Cardiovascular: Reports no additional cardiovascular complaints Respiratory: Reports no additional respiratory complaints and Denies cough Gastrointestinal: Reports nausea and Reports vomiting Psychiatric: Reports anxiety PMFSH Social History Social History Alcohol intake: never Patient Tobacco Use Status: Never used Tobacco Substance Use Type: Marijuana Advance Directives: Yes Advance Directives Information Provided: No Advance Directives on File: No Advance Directives Date on File: 11/08/20 Meds Allergies Allergy/AdvReac Type Severity Reaction Status Date / Time No Known Allergies Allergy Verified 11/07/20 00:19 Active Medications: Current Medications Generic Name Dose Route Start Last Admin Trade Name Freq PRN Reason Stop Dose Admin Acetaminophen 650 mg 11/08/20 14:22 Acetaminophen 325 Mg Tablet PO Q6H PRN Pain, Mild (Pain Scale 1-3) Acetaminophen/Butalbital/Caffeine 1 tab 11/08/20 15:41 Butalb/Acetamin/Caff 50/325/40 Tablet PO Q4H PRN Headache Hydroxyzine HCl 25 mg 11/09/20 09:00 Hydroxyzine Hcl 25 Mg Tablet PO DAILY PHANI Sodium Bicarbonate 150 meq/ 1,000 mls @ 100 mls/hr 11/08/20 10:30 11/08/20 11:09 Dextrose IV 100 mls/hr .Q10H PHANI Administration Ondansetron HCl 4 mg 11/08/20 14:22 Ondansetron Hcl 4 Mg/2 Ml Vial IVPUSH Q8H PRN Nausea and Vomiting Sodium Chloride 3 ml 11/08/20 16:00 11/08/20 15:28 0.9 % Sodium Chloride Flush 3 Ml Syringe IVFLUSH Not Given QSHIFT [facility] Medications Medication Instructions Recorded Confirmed Last Taken Type citalopram 10 mg tablet 10 mg PO DAILY 11/06/20 11/08/20 1 Day Ago History ~11/07/20 hydroxyzine HCl 25 mg tablet 25 mg PO DAILY 11/06/20 11/08/20 1 Day Ago History ~11/07/20 Physical Exam Vital Signs: Last Vital Signs Temp 97 F 11/08/20 15:23 Pulse 104 H 11/08/20 15:23 Resp 18 11/08/20 15:23 BP 120/55 L 11/08/20 15:23 Pulse Ox 100 11/08/20 15:23 Body Mass Index 20.2 Const General: cooperative Orientation/consciousness: oriented to person, oriented to place, oriented to time and patient oriented x3 HENMT Head: Yes normal to inspection and No Ramirez's sign Eyes General: appearance normal, both eyes and all related structures Visual Marshall: normal visual marshall by confrontation Conjunctivae: conjunctivae normal Sclerae: sclerae normal Neck Neck: Yes normal visual inspection, Yes full ROM and Yes no lymphadenopathy Chest Chest palpation & inspection: normal inspection of the chest Resp Effort & Inspection: normal respiratory effort Auscultation: clear to auscultation bilaterally Cardio Jugular venous distension: no JVD Rate: regular rate Rhythm: regular rhythm GI Inspection: Yes normal to inspection Palpation (GI): Soft to palpation, nontender and no guarding Skin General skin exam: no rashes or lesions noted, elasticity normal and turgor normal Neuro General: oriented to person, oriented to place, oriented to time and patient oriented x3 Extrem General: Yes normal to inspection and Yes full ROM Results Lab Results Result Diagrams: 11/08/20 09:33 11/08/20 12:56 Lab results: Chemistry 11/08/20 11/08/20 09:33 12:56 Sodium 138 137 Potassium 4.4 4.6 Carbon Dioxide 10 L* 12 L BUN 12 Creatinine 0.76 Calcium 10.1 Hematology 11/08/20 09:33 WBC 9.3 Hgb 13.5 Plt Count 421 H D Urinalysis 11/08/20 09:53 Urine Color YELLOW Urine Appearance HAZY Urine pH 6.0 Ur Specific [place] >= 1.030 H Urine Protein TRACE Urine Glucose (UA) NEG Urine Ketones >=80 Urine Blood 2+ H Urine Nitrite NEG Ur Leukocyte Esterase NEG Urine RBC 5-9 H Urine WBC 0-2 Ur Squamous Epith Cells 1+ Assessment and Plan (1) Increased anion gap metabolic acidosis: Status: Acute (2) Vomiting: Status: Acute (3) Headache: Status: Acute Ms. Macy Squires is a 30-year-old female with past medical history of migraines and anxiety who presents to the ED on 11/08/2020 with intractable nausea and vomiting for over 1 week, in the setting of URI symptoms about 1 week ago. She denies Hematuria, Hematemesis, and Oliguria. She does however report reduced PO intake. She denies eoth misuse, tylenol over use and toxic alochol ingestion. 1. Acidosis On presentation to ED she had an elevated Anion Gap. No OKSANA. However on repeat trend of labs AG is resolved and acidsois persists. Etiology of AG can include lactic aciosis, CPK elevation from rhabdo, starvation ketosis, hyperglycemia / DKA, toxic alcohol ingestion, solicilate and pyroglutamic acid poinsoning, and renal failure. She does not really fit into any of these differentials. The etiology of non-gap include diarrhea, ureteral diversion, RTA, hyperalimentation, addisons, and hyperchloremia. She again does not fit into much of these categories. Vomiting usually causes CONTRACTION ALKALOSIS, not acidosis. So this is a peculi ar case. Plan: - Start NaBiicarb 150meq/L at 125cc/hr for now - monitor renal panel daily - without OKSANA and AMS i doubt toxic ingestion - check lactate, CPK, BHB - get ABG - make sure she is not abusing any weight loss meds Procedures Date of Service Date of Service: 11/08/20
[2020-11-08] MEDS: Butalb/Acetamin/Caff 50/325/40 TABLET 1 TAB PO (16:11)
--- NOTE | 2020-11-08 19:05 | PC.NURSE ---
PT C/O TINGLING TO FINGERS AND FEET AND LOWER LEGS. STATES SHE HAD THIS HAPPEN AFTER TAKING EXCEDRINE MIGRAINE EARLIER THIS WEEK. SUBSIDED AFTER ABOUT HALF A DAY. TIGERTEXT SENT TO DR PARADA PT WAS GIVEN FIORICET AT 1611. NO NEW ORDERS GIVEN AT THIS TIME. REPORTED TO MANA BOX
[2020-11-08] MEDS: ondansetron HCL 4 MG/2 ML VIAL IVPUSH (23:41)
[2020-11-09 03:10] VITALS: BP 133/66; PULSE 78; RESP 16; TEMP 36.3; O2SAT 100
[2020-11-09] MEDS: Sodium Bicarbonate 8.4% 150 MEQ in Dextrose 5 % 850 ML 100 MEQ IV (05:01)
[2020-11-09 07:25] LABS: Anion Gap 11 (12-20); Blood Urea Nitrogen 4 mg/dL (9-16); Calcium 8.9 mg/dL (8.4-10.2); Carbon Dioxide 29 mmol/L (22-29); Chloride 103 mmol/L (96-108); Creatinine Clr Calc Pharmacy 113.5; Estimated Glomerular Filt Rate > 60; Glucose Random 137 mg/dL (60-115); Potassium 2.7 mmol/L (3.3-5.1); Sodium 140 mmol/L (135-145)
[2020-11-09 07:31] VITALS: BP 105/66; PULSE 78; RESP 18; TEMP 36.3; O2SAT 100
[2020-11-09] MEDS: 0.9 % Sodium Chloride Flush 3 ML SYRINGE IVFLUSH (07:42)
[2020-11-09] MEDS: ondansetron HCL 4 MG/2 ML VIAL IVPUSH ×2 (08:20→19:18)
[2020-11-09] MEDS: Dextrose 5 % and 0.9 % NaCl 1,000 ML 80 ML IVCONT ×2 (09:31→22:07)
--- NOTE | 2020-11-09 09:42 | MHC.CM.PN ---
PATIENT IS FULLY INDEPENDENT WITH ALL ADLS. NO DME OR VNA SERVICES. ANTICIPATE HOME WITH NO SERVICES. CASE MANAGEMETN AVAILABLE FOR ANY DISCHARGE NEEDS. WILL DISCUSS HCP WHEN PATIENT IS FEELING BETTER. M.O.O.N. 11/09 IN CHART.
--- NOTE | 2020-11-09 10:42 | P.CNGI_ITS ---
History of Present Illness Data of Consult Service Date: 11/09/20 Requesting physician: Radha Holly Primary Care Provider: Anika Ely MD HPI Reason for consult: nausea, vomiting 30 years old lady with PMH anxiety who I am seeing for assessment for nausea and vomiting. Symptoms started about 2 weeks ago with severe frontal headaches and photphobia with tingling in hands and feet. The headache persisted for about 1 week and she then developed nausea and non bloody emesis multiple times during the day as well as dizziness but no tinnitus or hearing loss . Denies neck stiffness but feels her neck is weak and can't lift head up fully. She denies having these sx before. She denies any fever, chills, loss conscious, chest pain, shortness of breath coughing. she denies abdominal pain or staiety, no melena, or bleeding. she was found to non anion gap metabolic acidosis with low blood pressure readings. Seh does use cannabis daily ,multiple times for 8 yrs or so. No taking nsaids or OCP. Review of Systems Review of Systems: Constitutional : No Weight loss, No Fever, No Chills ENT/Mouth : No sore throat, No Rhinorrhea Eyes: No Swelling, No Redness Cardiovascular : No Chest Pain, No SOB, No Edema Respiratory : No Cough, No Sputum, No Wheezing Gastrointestinal : see HPI Genitourinary : NO Dysuria, No Urinary Frequency, No Hematuria, No Urgency Musculoskeletal : No joint pain, No Myalgias, No Joint Swelling Skin : No Skin Lesions, No rash Neuro : + Weakness, Psych : No Anxiety/Panic, No Depression Heme/Lymph: No Bruising, No Lymphadenopathy Endocrine : No Polyuria, No Polydipsia All other systems reviewed and are negative. Yes all other systems are reviewed and are negative Cardiovascular: Cardiovascular: Reports no additional cardiovascular complaints Respiratory: Respiratory: Reports no additional respiratory complaints and Denies cough Gastrointestinal: Gastrointestinal: Reports nausea and Reports vomiting Psychiatric: Psychiatric: Reports anxiety [facility] Social History Social History Alcohol intake: never Patient Tobacco Use Status: Never used Tobacco Substance Use Type: Marijuana Advance Directives: Yes Advance Directives Information Provided: No Advance Directives on File: No Advance Directives Date on File: 11/08/20 service: No Current occupational status: employed Meds Allergies Allergy/AdvReac Type Severity Reaction Status Date / Time No Known Allergies Allergy Verified 11/07/20 00:19 Active Medications: Current Medications Generic Name Dose Route Start Last Admin Trade Name Freq PRN Reason Stop Dose Admin Acetaminophen 650 mg 11/08/20 14:22 Acetaminophen 325 Mg Tablet PO Q6H PRN Pain, Mild (Pain Scale 1-3) Acetaminophen/Butalbital/Caffeine 1 tab 11/08/20 15:41 Butalb/Acetamin/Caff 50/325/40 Tablet PO Q4H PRN Headache Hydroxyzine HCl 25 mg 11/09/20 09:00 11/09/20 07:42 Hydroxyzine Hcl 25 Mg Tablet PO Not Given DAILY PHANI Dextrose/Sodium Chloride 1,000 mls @ 80 mls/hr 11/09/20 09:00 11/09/20 09:31 D5ns IVCONT 80 mls/hr .[id number] PHANI Administration Metoclopramide HCl 5 mg 11/09/20 11:30 Metoclopramide Hcl 5 Mg Tablet PO QIDACHS PHANI Ondansetron HCl 4 mg 11/08/20 14:22 11/09/20 08:20 Ondansetron Hcl 4 Mg/2 Ml Vial IVPUSH 4 mg Q8H PRN Administration Nausea and Vomiting Potassium Chloride 40 meq 11/09/20 08:00 11/09/20 08:26 Potassium Chloride Packet 20 Meq Packet PO 11/09/20 12:01 40 meq Q4H PHANI Administration Sodium Chloride 3 ml 11/08/20 16:00 11/09/20 07:42 0.9 % Sodium Chloride Flush 3 Ml Syringe IVFLUSH 3 ml QSHIFT PHANI Administration Home Medications Medication Instructions Recorded Confirmed Last Taken Type citalopram 10 mg tablet 10 mg PO DAILY 11/06/20 11/08/20 1 Day Ago History ~11/07/20 hydroxyzine HCl 25 mg tablet 25 mg PO DAILY 11/06/20 11/08/20 1 Day Ago History ~11/07/20 Physical Exam Vital Signs: Vital Signs: Last Vital Signs Temp 97.4 F 11/09/20 07:31 Pulse 78 11/09/20 07:31 Resp 18 11/09/20 07:31 BP 105/66 11/09/20 07:31 Pulse Ox 100 11/09/20 07:31 Body Mass Index 20.2 Const: Other: Constitutional : Alert, oriented, not in distress Neck : Normal inspection, Supple Cardiovascular : RRR, S1 S2, no lower extremity edema Respiratory : Good bilateral air entry, no crackles, wheezes or rhonchi Gastrointestinal: soft, lax, decrease bowel sounds, mild epigastric tenderness seems muscular in origin Skin : Warm/Dry, No rash Neurological : Alert & oriented x3, No focal deficit General: cooperative Orientation/consciousness: oriented to person, oriented to place, oriented to time and patient oriented x3 HENMT: Head: Yes normal to inspection and No Ramirez's sign Eyes: General: appearance normal, both eyes and all related structures Visual Marshall: normal visual marshall by confrontation Conjunctivae: conjunctivae normal Sclerae: sclerae normal EOM: No Nystagmus present Neck: Neck: Yes normal visual inspection, Yes full ROM, Yes no lymphadenopathy and Yes no meningeal signs Chest: Chest palpation & inspection: normal inspection of the chest Resp: Effort & Inspection: normal respiratory effort Auscultation: clear to auscultation bilaterally Cardio: Jugular venous distension: no JVD Rate: regular rate Rhythm: regular rhythm GI: Inspection: Yes normal to inspection Palpation (GI): Soft to palpation, nontender and no guarding Skin: General skin exam: no rashes or lesions noted, elasticity normal and turgor normal Neuro: General: oriented to person, oriented to place, oriented to time, patient oriented x3, moves all extremities, no meningeal signs, no focal motor deficits, CN's II-XI intact bilaterally and normal sensation to monofilament Cranial nerves: Yes Nystagmus not present, Yes Normal facial strength present and No Nystagmus present Gait exam (Neuro): Normal gait present and not ataxic Motor exam (neuro): 5/5 motor strength present throughout, no tremors and normal tone Deep tendon reflexes (DTR's): Right patellar reflex intensity grade: 2+ and Left patellar reflex intensity grade: 2+ Coordination: tandem gait normal Romberg Test: Negative Extrem: General: Yes normal to inspection and Yes full ROM Results Labs CBC & Chem 7: 11/08/20 09:33 11/09/20 05:59 Labs: BMP 11/08/20 11/09/20 12:56 05:59 Sodium 137 140 Potassium 4.6 2.7 L D Chloride 112 H 103 Carbon Dioxide 12 L 29 BUN 4 L D Creatinine 0.53 Calcium 8.9 D Cardiac Enzymes 11/09/20 Range/Units 05:59 Total Creatine Kinase 20 L (26-140) U/L Assessment and Plan (1) Headache: Status: Acute (2) Vomiting: Status: Acute 1/ Nausea and vomiting preceded by 1 week of photophobia and headache with tingling, need to exclude central cause such as sagittal sinus, cavernous clot or other lesion, DDX; viral meningitis in recovery phase, canniboid hyperemesis syndrome, functional dyspepsia, gastroparesis, PUD, enteritis PLAN: 1/ CT imaging of brain with contrast 2/ if above neg and sx persist then EGD 3/ PO diet as toleratred, scheduled anti emetics, multivitamin and thiamine replacement Procedures Date of Service Date of Service: 11/09/20
[2020-11-09] MEDS: Metoclopramide HCl 5 MG TABLET PO ×3 (11:13→20:27)
[2020-11-09 11:45] VITALS: BP 110/56; PULSE 75; RESP 17; TEMP 36.9; O2SAT 100
--- NOTE | 2020-11-09 12:01 | HO.PM.IMPN ---
Subjective Subjective Date of Service: 11/09/20 Interval History: the patient was seen and evaluated this morning Laying in bed, feels comfortable Denies any fever, chills or shortness of breath No reported other overnight events. Systemic review: No fever, chills or weakness No chest pain, palpitation No shortness of breath or coughing still complaining of nausea and vomiting No urinary symptoms No any rash or wounds Physical Exam Vital Signs: Vital Signs: Last Vital Signs Temp 98.4 F 11/09/20 11:45 Pulse 75 11/09/20 11:45 Resp 17 11/09/20 11:45 BP 110/56 L 11/09/20 11:45 Pulse Ox 100 11/09/20 11:45 Body Mass Index 20.2 Const: Other: Constitutional : Alert, oriented, feeling nauseated and weak lightheadedness Neck : Normal inspection, Supple Cardiovascular : RRR, S1 S2, no lower extremity edema Respiratory : Good bilateral air entry, no crackles, wheezes or rhonchi Gastrointestinal: soft, lax, decrease bowel sounds, mild epigastric tenderness seems muscular in origin Skin : Warm/Dry, No rash Neurological : Alert & oriented x3, No focal deficit, no neck rigidity, negative meningeal signs Objective Data Current Medications Generic Name Dose Route Start Last Admin Trade Name Freq PRN Reason Stop Dose Admin Acetaminophen 650 mg 11/08/20 14:22 Acetaminophen 325 Mg Tablet PO Q6H PRN Pain, Mild (Pain Scale 1-3) Acetaminophen/Butalbital/Caffeine 1 tab 11/08/20 15:41 Butalb/Acetamin/Caff 50/325/40 Tablet PO Q4H PRN Headache Hydroxyzine HCl 25 mg 11/09/20 09:00 11/09/20 07:42 Hydroxyzine Hcl 25 Mg Tablet PO Not Given DAILY PHANI Dextrose/Sodium Chloride 1,000 mls @ 80 mls/hr 11/09/20 09:00 11/09/20 09:31 D5ns IVCONT 80 mls/hr .[id number] PHANI Administration Metoclopramide HCl 5 mg 11/09/20 11:30 11/09/20 11:13 Metoclopramide Hcl 5 Mg Tablet PO 5 mg QIDACHS PHANI Administration Ondansetron HCl 4 mg 11/08/20 14:22 11/09/20 08:20 Ondansetron Hcl 4 Mg/2 Ml Vial IVPUSH 4 mg Q8H PRN Administration Nausea and Vomiting Potassium Chloride 40 meq 11/09/20 08:00 11/09/20 08:26 Potassium Chloride Packet 20 Meq Packet PO 11/09/20 12:01 40 meq Q4H PHANI Administration Sodium Chloride 3 ml 11/08/20 16:00 11/09/20 07:42 0.9 % Sodium Chloride Flush 3 Ml Syringe IVFLUSH 3 ml QSHIFT PHANI Administration Labs CBC & Chem 7: 11/08/20 09:33 11/09/20 05:59 Labs: Laboratory Results - last 24 hr 11/08/20 11/08/20 11/08/20 09:53 12:56 13:57 Sodium 137 Potassium 4.6 Chloride 112 H Carbon Dioxide 12 L Anion Gap 18 BUN Creatinine Estim Creat Clear Calc Estimated GFR Random Glucose Calcium Total Creatine Kinase Urine Opiates Screen Not Detected Ur Barbiturates Screen Not Detected Ur Phencyclidine Scrn Not Detected Ur Amphetamines Screen Not Detected U Benzodiazepines Scrn Not Detected Urine Cocaine Screen Not Detected U Marijuana (THC) Screen POSITIVE H COVID-19 (ULISSES) Negative COVID-19 Clin Com See Note 11/09/20 11/09/20 05:59 05:59 Sodium 140 Potassium 2.7 L D Chloride 103 Carbon Dioxide 29 Anion Gap 11 L BUN 4 L D Creatinine 0.53 Estim Creat Clear Calc 113.5 Estimated GFR > 60 Random Glucose 137 H D Calcium 8.9 D Total Creatine Kinase 20 L Urine Opiates Screen Ur Barbiturates Screen Ur Phencyclidine Scrn Ur Amphetamines Screen U Benzodiazepines Scrn Urine Cocaine Screen U Marijuana (THC) Screen COVID-19 (ULISSES) COVID-19 Clin Com Quality Stroke Does the patient have a stroke diagnosis?: No VTE Prior VTE?: No VTE Risk Level:: Medical - low VTE Device Contraindication: Treatment Not Indicated VTE Drug Contraindication: Treatment Not Indicated Assessment and Plan (1) Increased anion gap metabolic acidosis: Status: Acute (2) Vomiting: Status: Acute (3) Headache: Status: Acute Assessment and Plan: a 30 years old lady with PMH anxiety who presents to the hospital with chief complaint of nausea and vomiting for the last week. Non anion gap metabolic acidosis Secondary to excessive vomiting resolved Discontinue bicarb Monitor BMP Intractable nausea and vomiting Seems to be related to viral illness recently, cyclic vomiting syndrome Abdominal exam is benign with no alarming signs IV fluids Zofran as needed continue with clear liquids and advanced diet as tolerated Headache Related upper respiratory tract infection and possible sinus infection to check CT head with and without contrast to rule out any cavernous sinus thrombosis, masses To use FLoricet as needed Anxiety Use Atarax as needed DVT PPX Early ambulation
[2020-11-09] MEDS: Potassium Chloride ER 20 MEQ TAB.ER.PRT 40 MEQ PO ×2 (13:30→20:27)
[2020-11-09] MEDS: iohexoL 350 MG/ML 100 ML INFUS..BTL IV (14:21)
[2020-11-09 15:22] VITALS: BP 120/57; PULSE 78; RESP 16; TEMP 36.2; O2SAT 100
[2020-11-09] MEDS: Acetaminophen 325 MG TABLET 650 MG PO (15:31)
--- NOTE | 2020-11-09 16:41 | P.PNNP_ITS ---
Subjective Subjective Date of Service: 11/09/20 Interval history: acidosis resolved due to acidosis correction now hypokalemic. Also due to ongoing vomiting she is hypokalemic Physical Exam Vital Signs: Vital Signs: Last Vital Signs Temp 97.2 F 11/09/20 15:22 Pulse 78 11/09/20 15:22 Resp 16 11/09/20 15:22 BP 120/57 L 11/09/20 15:22 Pulse Ox 100 11/09/20 15:22 Body Mass Index 20.2 Const: Other: Constitutional : Alert, oriented, not in distress Neck : Normal inspection, Supple Cardiovascular : RRR, S1 S2, no lower extremity edema Respiratory : Good bilateral air entry, no crackles, wheezes or rhonchi Gastrointestinal: soft, lax, decrease bowel sounds, mild epigastric tenderness seems muscular in origin Skin : Warm/Dry, No rash Neurological : Alert & oriented x3, No focal deficit General: cooperative Orientation/consciousness: oriented to person, oriented to place, oriented to time and patient oriented x3 HENMT: Head: Yes normal to inspection and No Ramirez's sign Eyes: General: appearance normal, both eyes and all related structures Visual Marshall: normal visual marshall by confrontation Conjunctivae: conjunctivae normal Sclerae: sclerae normal Neck: Neck: Yes normal visual inspection, Yes full ROM and Yes no lymphadeno guille Chest: Chest palpation & inspection: normal inspection of the chest Resp: Effort & Inspection: normal respiratory effort Auscultation: clear to auscultation bilaterally Cardio: Jugular venous distension: no JVD Rate: regular rate Rhythm: regular rhythm GI: Inspection: Yes normal to inspection Palpation (GI): Soft to palpation, nontender and no guarding Skin: General skin exam: no rashes or lesions noted, elasticity normal and turgor normal Neuro: General: oriented to person, oriented to place, oriented to time and patient oriented x3 Extrem: General: Yes normal to inspection and Yes full ROM Objective Data Labs CBC & Chem 7: 11/08/20 09:33 11/09/20 05:59 Labs: Laboratory Results - last 24 hr 11/09/20 11/09/20 05:59 05:59 Sodium 140 Potassium 2.7 L D Chloride 103 Carbon Dioxide 29 Anion Gap 11 L BUN 4 L D Creatinine 0.53 Estim Creat Clear Calc 113.5 Estimated GFR > 60 Random Glucose 137 H D Calcium 8.9 D Total Creatine Kinase 20 L Assessment & Plan Assessment and plan (1) Increased anion gap metabolic acidosis: Status: Acute (2) Vomiting: Status: Acute (3) Headache: Status: Acute Assessment and Plan: Ms. Macy Squires is a 30-year-old female with past medical history of migraines and anxiety who presents to the ED on 11/08/2020 with intractable nausea and vomiting for over 1 week, in the setting of URI symptoms about 1 week ago. She d enies Hematuria, Hematemesis, and Oliguria. She does however report reduced PO intake. She denies eoth misuse, tylenol over use and toxic alochol ingestion. 1. Acidosis On presentation to ED she had an elevated Anion Gap. No OKSANA. However on repeat trend of labs AG is resolved and acidsois persists. Etiology of AG can include lactic aciosis, CPK elevation from rhabdo, starvation ketosis, hyperglycemia / DKA, toxic alcohol ingestion, solicilate and pyroglutamic acid poinsoning, and renal failure. She does not really fit into any of these differentials. The etiology of non-gap include diarrhea, ureteral diversion, RTA, hyperalimentation, addisons, and hyperchloremia. She again does not fit into much of these categories. Vomiting usually causes CONTRACTION ALKALOSIS, not acidosis. So this is a peculiar case. Plan: - 40meq PO KCL - Stop bicarb fluids - start isotonic saline - work up ongoing vomiting, consider GI eval Time Spent With Patient Time: Total time spent is greater than 50% in coordination of care (as documented) at patient's floor/unit and/or counseling patient: Procedures Date of Service Date of Service: 11/09/20 Progress Note: Quality Stroke Does the patient have a stroke diagnosis?: No
[2020-11-09 19:21] VITALS: BP 122/65; PULSE 88; RESP 18; TEMP 36.4; O2SAT 100
[2020-11-09] MEDS: hydrOXYzine HCL 25 MG TABLET PO (20:27)
[2020-11-09 23:25] VITALS: BP 117/61; PULSE 86; RESP 18; TEMP 37.3; O2SAT 100
[2020-11-10 03:16] VITALS: BP 119/63; PULSE 87; RESP 18; TEMP 36.9; O2SAT 100
[2020-11-10 07:17] LABS: Blood Urea Nitrogen 4 mg/dL (9-16); Calcium 8.9 mg/dL (8.4-10.2); Creatinine Clr Calc Pharmacy 122.7; Estimated Glomerular Filt Rate > 60; Glucose Random 113 mg/dL (60-115)
[2020-11-10 07:30] LABS: Anion Gap 11 (12-20); Carbon Dioxide 25 mmol/L (22-29); Chloride 109 mmol/L (96-108); Potassium 3.3 mmol/L (3.3-5.1); Sodium 142 mmol/L (135-145)
[2020-11-10 07:32] VITALS: BP 111/52; PULSE 73; RESP 16; TEMP 36.8; O2SAT 99
[2020-11-10] MEDS: Metoclopramide HCl 5 MG TABLET PO ×4 (07:48→20:36)
[2020-11-10] MEDS: Dextrose 5 % and 0.9 % NaCl 1,000 ML 80 ML IVCONT (10:49)
[2020-11-10 11:35] VITALS: BP 107/58; PULSE 77; RESP 16; TEMP 36.7; O2SAT 99
--- NOTE | 2020-11-10 13:28 | P.PNIM_ITS ---
Subjective Subjective Date of Service: 11/10/20 Interval History: the patient was seen and evaluated this morning Laying in bed, still complaining of abdominal discomfort associated with nausea and vomiting And able to tolerate much of diet Denies any fever, chills or shortness of breath No reported other overnight events. Systemic review: No fever, chills or weakness No chest pain, palpitation No shortness of breath or coughing still complaining of nausea and vomiting No urinary symptoms No any rash or wounds Physical Exam Vital Signs: Vital Signs: Last Vital Signs Temp 98.0 F 11/10/20 11:35 Pulse 77 11/10/20 11:35 Resp 16 11/10/20 11:35 BP 107/58 L 11/10/20 11:35 Pulse Ox 99 11/10/20 11:35 Body Mass Index 20.2 Const: Other: Constitutional : Alert, oriented, feeling nauseated and the lightheadedness Neck : Normal inspection, Supple Cardiovascular : RRR, S1 S2, no lower extremity edema Respiratory : Good bilateral air entry, no crackles, wheezes or rhonchi Gastrointestinal: soft, lax, decrease bowel sounds, mild epigastric tenderness seems muscular in origin Skin : Warm/Dry, No rash Neurological : Alert & oriented x3, No focal deficit, no neck rigidity, negative meningeal signs Objective Data Current Medications Generic Name Dose Route Start Last Admin Trade Name Freq PRN Reason Stop Dose Admin Acetaminophen 650 mg 11/08/20 14:22 11/09/20 15:31 Acetaminophen 325 Mg Tablet PO 650 mg Q6H PRN Administration Pain, Mild (Pain Scale 1-3) Acetaminophen/Butalbital/Caffeine 1 tab 11/08/20 15:41 Butalb/Acetamin/Caff 50/325/40 Tablet PO Q4H PRN Headache Hydroxyzine HCl 25 mg 11/09/20 21:00 11/09/20 20:27 Hydroxyzine Hcl 25 Mg Tablet PO 25 mg DAILY@2100 PHANI Administration Dextrose/Sodium Chloride 1,000 mls @ 80 mls/hr 11/09/20 09:00 11/10/20 10:49 D5ns IVCONT 80 mls/hr .[id number] PHANI Administration Metoclopramide HCl 5 mg 11/09/20 11:30 11/10/20 10:49 Metoclopramide Hcl 5 Mg Tablet PO 5 mg QIDACHS PHANI Administration Ondansetron HCl 4 mg 11/08/20 14:22 11/09/20 19:18 Ondansetron Hcl 4 Mg/2 Ml Vial IVPUSH 4 mg Q8H PRN Administration Nausea and Vomiting Sodium Chloride 3 ml 11/08/20 16:00 11/10/20 06:59 0.9 % Sodium Chloride Flush 3 Ml Syringe IVFLUSH Not Given QSHIFT [facility] Labs CBC & Chem 7: 11/08/20 09:33 11/10/20 05:41 Labs: Laboratory Results - last 24 hr 11/10/20 05:41 Sodium 142 Potassium 3.3 D Chloride 109 H Carbon Dioxide 25 Anion Gap 11 L BUN 4 L Creatinine 0.49 L Estim Creat Clear Calc 122.7 Estimated GFR > 60 Random Glucose 113 Calcium 8.9 Quality Stroke Does the patient have a stroke diagnosis?: No VTE Prior VTE?: No VTE Risk Level:: Medical - low VTE Device Contraindication: Treatment Not Indicated VTE Drug Contraindication: Treatment Not Indicated Assessment and Plan (1) Increased anion gap metabolic acidosis: Status: Acute (2) Vomiting: Status: Acute (3) Headache: Status: Acute Assessment and Plan: a 30 years old lady with PMH anxiety who presents to the hospital with chief complaint of nausea and vomiting for the last week. Intractable nausea and vomiting Seems to be related to viral illness recently? cyclic vomiting syndrome? Gastritis? Abdominal exam is benign with no alarming signs continue IV fluids Reglan around meals Zofran as needed continue with clear liquids and advanced diet as tolerated GI input appreciated, to do EGD tomorrow Headache Improved Related upper respiratory tract infection, No meningeal signs on exam CT head rule out any cavernous sinus thrombosis, masses. To use FLoricet as needed Non anion gap metabolic acidosis Secondary to excessive vomiting resolved Anxiety Use Atarax as needed DVT PPX Early ambulation dispo, plan to discharge after she is able to tolerate diet. Possibly tomorrow after EGD.
[2020-11-10 15:16] VITALS: BP 113/58; PULSE 75; RESP 20; TEMP 36.6; O2SAT 98
[2020-11-10 19:05] VITALS: BP 121/67; PULSE 77; RESP 20; TEMP 36.7; O2SAT 98
[2020-11-10] MEDS: hydrOXYzine HCL 25 MG TABLET PO (20:36)
[2020-11-10 23:27] VITALS: BP 122/60; PULSE 78; RESP 18; TEMP 36; O2SAT 100
[2020-11-11] VITALS (8 sets, daily range): BP systolic 106–127; BP diastolic 55–81; PULSE 80–122; RESP 14–20; TEMP 36.2–36.9; O2SAT 98–100
[2020-11-11] MEDS: Dextrose 5 % and 0.9 % NaCl 1,000 ML 80 ML IVCONT ×2 (01:01→14:09)
[2020-11-11] MEDS: Potassium Chloride ER 20 MEQ TAB.ER.PRT 40 MEQ PO (08:51)
[2020-11-11] MEDS: Metoclopramide HCl 5 MG TABLET PO ×2 (08:51→13:59)
[2020-11-11 09:44] LABS: Magnesium 1.6 mg/dL (1.6-2.6); Phosphorus 4.9 mg/dL (2.7-4.5)
[2020-11-11 09:49] LABS: Anion Gap 15 (12-20); Blood Urea Nitrogen 5 mg/dL (9-16); Carbon Dioxide 25 mmol/L (22-29); Chloride 105 mmol/L (96-108); Creatinine Clr Calc Pharmacy 111.4; Estimated Glomerular Filt Rate > 60; Glucose Random 95 mg/dL (60-115); Potassium 3.5 mmol/L (3.3-5.1); Sodium 141 mmol/L (135-145)
[2020-11-11 10:48] LABS: Calcium 9.1 mg/dL (8.4-10.2)
--- NOTE | 2020-11-11 11:04 | HO.PM.IMPN ---
Subjective Subjective Date of Service: 11/11/20 Interval History: starting to feel better Cardiovascular Cardiovascular: Reports no additional cardiovascular complaints Gastrointestinal Gastrointestinal: Reports no additional gastrointestinal complaints Physical Exam Vital Signs: Vital Signs: Last Vital Signs Temp 98.3 F 11/11/20 07:27 Pulse 80 11/11/20 07:27 Resp 17 11/11/20 07:27 BP 115/64 11/11/20 07:27 Pulse Ox 98 11/11/20 07:27 Body Mass Index 20.2 General: AO X 3, no acute distress Resp: CTA bilateral CVS: S1,S2,RRR GI: soft, non tender, non distended Neuro: motor grossly intact Psych: appropriate affect Objective Data Current Medications Generic Name Dose Route Start Last Admin Trade Name Freq PRN Reason Stop Dose Admin Acetaminophen 650 mg 11/08/20 14:22 11/09/20 15:31 Acetaminophen 325 Mg Tablet PO 650 mg Q6H PRN Administration Pain, Mild (Pain Scale 1-3) Acetaminophen/Butalbital/Caffeine 1 tab 11/08/20 15:41 Butalb/Acetamin/Caff 50/325/40 Tablet PO Q4H PRN Headache Hydroxyzine HCl 25 mg 11/09/20 21:00 11/10/20 20:36 Hydroxyzine Hcl 25 Mg Tablet PO 25 mg DAILY@2100 HPANI Administration Dextrose/Sodium Chloride 1,000 mls @ 80 mls/hr 11/09/20 09:00 11/11/20 01:01 D5ns IVCONT 80 mls/hr .[id number] PHANI Administration Magnesium Oxide 800 mg 11/11/20 17:30 Magnesium Oxide 400 Mg Tablet PO BIDPC PHANI Metoclopramide HCl 5 mg 11/09/20 11:30 11/11/20 08:51 Metoclopramide Hcl 5 Mg Tablet PO 5 mg QIDACHS PHANI Administration Ondansetron HCl 4 mg 11/08/20 14:22 11/09/20 19:18 Ondansetron Hcl 4 Mg/2 Ml Vial IVPUSH 4 mg Q8H PRN Administration Nausea and Vomiting Sodium Chloride 3 ml 11/08/20 16:00 11/11/20 07:13 0.9 % Sodium Chloride Flush 3 Ml Syringe IVFLUSH Not Given QSHIFT [facility] Labs CBC & Chem 7: 11/08/20 09:33 11/11/20 08:51 Labs: Laboratory Results - last 24 hr 11/11/20 11/11/20 11/11/20 08:51 08:51 08:51 Sodium 141 Potassium 3.5 Chloride 105 Carbon Dioxide 25 Anion Gap 15 BUN 5 L Creatinine 0.54 Estim Creat Clear Calc 111.4 Estimated GFR > 60 Random Glucose 95 Calcium 9.1 Phosphorus 4.9 H Magnesium 1.6 Quality Stroke Does the patient have a stroke diagnosis?: No VTE Prior VTE?: No VTE Risk Level:: Medical - low VTE Device Contraindication: Treatment Not Indicated VTE Drug Contraindication: Treatment Not Indicated Assessment and Plan (1) Increased anion gap metabolic acidosis: Status: Acute (2) Vomiting: Status: Acute (3) Headache: Status: Acute Assessment and Plan: a 30 years old lady with PMH anxiety who presents to the hospital with chief complaint of nausea and vomiting for about 2 weeks N/V improving ?viral syndrome EGD today AGMA then NAGMA resolved ? ketoacidosis from not eating due to GI illness anxiety Use Atarax as needed DVT PPX Early ambulation
--- NOTE | 2020-11-11 11:59 | P.CONAN_ITS ---
REPLACED BY [facility] Active Problems Active Problems: All Active Problems (Updated 11/08/20 @ 10:35 by Oswaldo flores MD) Increased anion gap metabolic acidosis (Acute) Vomiting (Acute) Headache (Acute) Social History Social History Alcohol intake: never Patient Tobacco Use Status: Never used Tobacco Substance Use Type: Marijuana Currently Displaying Signs/Symptoms of Drug Intoxication Withdrawal: No Advance Directives: Yes Advance Directives Information Provided: No Advance Directives on File: No Advance Directives Date on File: 11/08/20 Do you have thoughts of harming others: None Do you have a plan to hurt others: No Plan service: No Current occupational status: employed Meds Allergies Allergy/AdvReac Type Severity Reaction Status Date / Time No Known Allergies Allergy Verified 11/07/20 00:19 Active Medications: Current Medications Generic Name Dose Route Start Last Admin Trade Name Freq PRN Reason Stop Dose Admin Acetaminophen 650 mg 11/08/20 14:22 11/09/20 15:31 Acetaminophen 325 Mg Tablet PO 650 mg Q6H PRN Administration Pain, Mild (Pain Scale 1-3) Acetaminophen/Butalbital/Caffeine 1 tab 11/08/20 15:41 Butalb/Acetamin/Caff 50/325/40 Tablet PO Q4H PRN Headache Hydroxyzine HCl 25 mg 11/09/20 21:00 11/10/20 20:36 Hydroxyzine Hcl 25 Mg Tablet PO 25 mg DAILY@2100 PHANI Administration Dextrose/Sodium Chloride 1,000 mls @ 80 mls/hr 11/09/20 09:00 11/11/20 01:01 D5ns IVCONT 80 mls/hr .[id number] PHANI Administration Lactated Ringer's 1,000 mls @ 50 mls/hr 11/11/20 12:00 Lr IVCONT .Q20H PHANI Magnesium Oxide 800 mg 11/11/20 17:30 Magnesium Oxide 400 Mg Tablet PO BIDPC PHANI Metoclopramide HCl 5 mg 11/09/20 11:30 11/11/20 08:51 Metoclopramide Hcl 5 Mg Tablet PO 5 mg QIDACHS PHANI Administration Ondansetron HCl 4 mg 11/08/20 14:22 11/09/20 19:18 Ondansetron Hcl 4 Mg/2 Ml Vial IVPUSH 4 mg Q8H PRN Administration Nausea and Vomiting Sodium Chloride 3 ml 11/08/20 16:00 11/11/20 07:13 0.9 % Sodium Chloride Flush 3 Ml Syringe IVFLUSH Not Given QSHIFT [facility] Home Medications Medication Instructions Recorded Confirmed Last Taken Type citalopram 10 mg tablet 10 mg PO DAILY 11/06/20 11/08/20 1 Day Ago History ~11/07/20 hydroxyzine HCl 25 mg tablet 25 mg PO DAILY 11/06/20 11/08/20 1 Day Ago History ~11/07/20 Exam Exam Date and Time: November 11, 2020 1159 Height,Weight and Vital Signs: Height 5 ft Weight 47 kg Last Vital Signs Temp 98.5 F 11/11/20 11:38 Pulse 91 11/11/20 11:38 Resp 16 11/11/20 11:38 BP 106/57 L 11/11/20 11:38 Pulse Ox 100 11/11/20 11:38 Pertinent Lab Results Pertinent Lab Results: Laboratory Tests 11/08/20 11/08/20 11/08/20 09:33 09:33 09:53 WBC 9.3 RBC 4.45 Hgb 13.5 Hct 39.7 MCV 89.2 MCH 30.3 MCHC 34.0 RDW 11.9 Plt Count 421 H D MPV 8.9 L Immature Gran % (Auto) 0.4 Neut % (Auto) 82.1 H Lymph % (Auto) 11.1 L [place] % (Auto) 6.1 Eos % (Auto) 0.0 Baso % (Auto) 0.3 Lymph # (Auto) 1.0 L [place] # (Auto) 0.6 Eos # (Auto) 0.0 Baso # (Auto) 0.0 Abs Immat Gran (auto) 0.04 H Absolute Neuts (auto) 7.6 Absolute Nucleated RBC 0.000 Nucleated RBC % (auto) 0.0 Sodium 138 Potassium 4.4 Chloride 108 Carbon Dioxide 10 L* Anion Gap 24 H BUN 12 Creatinine 0.76 Estim Creat Clear Calc 79.1 Estimated GFR > 60 Random Glucose 92 Lactic Acid Calcium 10.1 Phosphorus Magnesium Total Bilirubin 0.6 Direct Bilirubin 0.2 AST 15 ALT 15 Alkaline Phosphatase 58 Total Creatine Kinase Total Protein 7.8 Albumin 4.6 Lipase 23 Beta HCG, Quant < 2 Urine Color YELLOW Urine Appearance HAZY Urine pH 6.0 Ur Specific [place] >= 1.030 H Urine Protein TRACE Urine Glucose (UA) NEG Urine Ketones >=80 Urine Blood 2+ H Urine Nitrite NEG Ur Leukocyte Esterase NEG Urine RBC 5-9 H Urine WBC 0-2 Ur Squamous Epith Cells 1+ Urine Bacteria 1+ Urine Mucus 1+ Urine Opiates Screen Ur Barbiturates Screen Ur Phencyclidine Scrn Ur Amphetamines Screen U Benzodiazepines Scrn Urine Cocaine Screen U Marijuana (THC) Screen COVID-19 (ULISSES) COVID-19 [place]iance 11/08/20 11/08/20 11/08/20 09:53 10:47 12:56 WBC RBC Hgb Hct MCV MCH MCHC RDW Plt Count MPV Immature Gran % (Auto) Neut % (Auto) Lymph % (Auto) [place] % (Auto) Eos % (Auto) Baso % (Auto) Lymph # (Auto) [place] # (Auto) Eos # (Auto) Baso # (Auto) Abs Immat Gran (auto) Absolute Neuts (auto) Absolute Nucleated RBC Nucleated RBC % (auto) Sodium 137 Potassium 4.6 Chloride 112 H Carbon Dioxide 12 L Anion Gap 18 BUN Creatinine Estim Creat Clear Calc Estimated GFR Random Glucose Lactic Acid 0.6 Calcium Phosphorus Magnesium Total Bilirubin Direct Bilirubin AST ALT Alkaline Phosphatase Total Creatine Kinase Total Protein Albumin Lipase Beta HCG, Quant Urine Color Urine Appearance Urine pH Ur Specific [place] Urine Protein Urine Glucose (UA) Urine Ketones Urine Blood Urine Nitrite Ur Leukocyte Esterase Urine RBC Urine WBC Ur Squamous Epith Cells Urine Bacteria Urine Mucus Urine Opiates Screen Not Detected Ur Barbiturates Screen Not Detected Ur Phencyclidine Scrn Not Detected Ur Amphetamines Screen Not Detected U Benzodiazepines Scrn Not Detected Urine Cocaine Screen Not Detected U Marijuana (THC) Screen POSITIVE H COVID-19 (ULISSES) COVID-19 Actiance 11/08/20 11/09/20 11/09/20 13:57 05:59 05:59 WBC RBC Hgb Hct MCV MCH MCHC RDW Plt Count MPV Immature Gran % (Auto) Neut % (Auto) Lymph % (Auto) [place] % (Auto) Eos % (Auto) Baso % (Auto) Lymph # (Auto) [place] # (Auto) Eos # (Auto) Baso # (Auto) Abs Immat Gran (auto) Absolute Neuts (auto) Absolute Nucleated RBC Nucleated RBC % (auto) Sodium 140 Potassium 2.7 L D Chloride 103 Carbon Dioxide 29 Anion Gap 11 L BUN 4 L D Creatinine 0.53 Estim Creat Clear Calc 113.5 Estimated GFR > 60 Random Glucose 137 H D Lactic Acid Calcium 8.9 D Phosphorus Magnesium Total Bilirubin Direct Bilirubin AST ALT Alkaline Phosphatase Total Creatine Kinase 20 L Total Protein Albumin Lipase Beta HCG, Quant Urine Color Urine Appearance Urine pH Ur Specific [place] Urine Protein Urine Glucose (UA) Urine Ketones Urine Blood Urine Nitrite Ur Leukocyte Esterase Urine RBC Urine WBC Ur Squamous Epith Cells Urine Bacteria Urine Mucus Urine Opiates Screen Ur Barbiturates Screen Ur Phencyclidine Scrn Ur Amphetamines Screen U Benzodiazepines Scrn Urine Cocaine Screen U Marijuana (THC) Screen COVID-19 (ULISSES) Negative COVID-19 Clin Com See Note 11/10/20 11/11/20 11/11/20 05:41 08:51 08:51 WBC RBC Hgb Hct MCV MCH MCHC RDW Plt Count MPV Immature Gran % (Auto) Neut % (Auto) Lymph % (Auto) [place] % (Auto) Eos % (Auto) Baso % (Auto) Lymph # (Auto) [place] # (Auto) Eos # (Auto) Baso # (Auto) Abs Immat Gran (auto) Absolute Neuts (auto) Absolute Nucleated RBC Nucleated RBC % (auto) Sodium 142 141 Potassium 3.3 D 3.5 Chloride 109 H 105 Carbon Dioxide 25 25 Anion Gap 11 L 15 BUN 4 L 5 L Creatinine 0.49 L 0.54 Estim Creat Clear Calc 122.7 111.4 Estimated GFR > 60 > 60 Random Glucose 113 95 Lactic Acid Calcium 8.9 9.1 Phosphorus Magnesium 1.6 Total Bilirubin Direct Bilirubin AST ALT Alkaline Phosphatase Total Creatine Kinase Total Protein Albumin Lipase Beta HCG, Quant Urine Color Urine Appearance Urine pH Ur Specific [place] Urine Protein Urine Glucose (UA) Urine Ketones Urine Blood Urine Nitrite Ur Leukocyte Esterase Urine RBC Urine WBC Ur Squamous Epith Cells Urine Bacteria Urine Mucus Urine Opiates Screen Ur Barbiturates Screen Ur Phencyclidine Scrn Ur Amphetamines Screen U Benzodiazepines Scrn Urine Cocaine Screen U Marijuana (THC) Screen COVID-19 (ULISSES) COVID-eflow Com 11/11/20 08:51 WBC RBC Hgb Hct MCV MCH MCHC RDW Plt Count MPV Immature Gran % (Auto) Neut % (Auto) Lymph % (Auto) [place] % (Auto) Eos % (Auto) Baso % (Auto) Lymph # (Auto) [place] # (Auto) Eos # (Auto) Baso # (Auto) Abs Immat Gran (auto) Absolute Neuts (auto) Absolute Nucleated RBC Nucleated RBC % (auto) Sodium Potassium Chloride Carbon Dioxide Anion Gap BUN Creatinine Estim Creat Clear Calc Estimated GFR Random Glucose Lactic Acid Calcium Phosphorus 4.9 H Magnesium Total Bilirubin Direct Bilirubin AST ALT Alkaline Phosphatase Total Creatine Kinase Total Protein Albumin Lipase Beta HCG, Quant Urine Color Urine Appearance Urine pH Ur Specific [place] Urine Protein Urine Glucose (UA) Urine Ketones Urine Blood Urine Nitrite Ur Leukocyte Esterase Urine RBC Urine WBC Ur Squamous Epith Cells Urine Bacteria Urine Mucus Urine Opiates Screen Ur Barbiturates Screen Ur Phencyclidine Scrn Ur Amphetamines Screen U Benzodiazepines Scrn Urine Cocaine Screen U Marijuana (THC) Screen COVID-19 (ULISSES) COVID-19 Clin Com Airway Mallampati Class: II TM Dist: >3cm Neck ROM: Full Heart: rrr Lungs: cta Assessment and Plan Assessment Anesthesia Assessment: Anesthesia Plan Discussed and Chart Reviewed Final Anesthetic Review NPO: Yes ASA Class: II Final Preanesthetic Review: No Changes in Pt Med Stat and Consent Obtained/Reviewed Patient Risk: Intermediate Procedure Risk: Intermediate Anesthetic Plan Anesthetic Plan: MAC: Disposition: Standard PACU
[2020-11-11] MEDS: Lactated Ringers 1,000 ML 50 ML IVCONT (12:07)
--- NOTE | 2020-11-11 12:38 | MHC.SHP ---
Pre-Procedural Eval Section A Date of Service: 11/11/20 The patient is an INPATIENT: Yes The History & Physical has been completed within 30 days and I have reviewed it.: Yes Section B Chief Complaint: Intractable nausea and vomiting Lightheadedness Allergies: Allergies Allergy/AdvReac Type Severity Reaction Status Date / Time No Known Allergies Allergy Verified 11/07/20 00:19 Plan Diagnosis/Plan: Unchanged I have reviewed the history and physical and performed a pertinent physical examination on my patient. No changes have occurred unless specified.
--- NOTE | 2020-11-11 12:39 | P.BOP_ITS ---
Brief Operative Note Date of Service: 11/11/20 Pre-op diagnosis: nausea and vomiting Post-op diagnosis: same Procedure: see op note Surgeon: Giacomo Beal MD Anesthesia: MAC Was an Equipment Maint Tech used for this Procedure?: No Estimated blood loss (mL): 0 Condition: stable Disposition: PACU
--- NOTE | 2020-11-11 12:39 | W.PM.OPN ---
Operative Note Operative Note Date of Service: 11/11/20 Narrative: Procedure Description: EGD FLEXIBLE TRANSORAL UPPER GASTROINTESTINAL ENDOSCOPY UPPER ENDOSCOPY Consent: Indications for the procedure and potential complications of bleeding, perforation, reaction to medications and missed diagnosis were discussed with the patient and informed consent was obtained. Instrument: Olympus GIF H 190 J mid size upper endoscope Monitoring: Vital signs and clinical assessment, continuous EKG monitoring, Pulse oximetry, Carbon Dioxide monitoring and blood pressure monitoring were done throughout the procedure. Procedure: The patient was placed in the left lateral decubitis position and pre-procedure medications were administered and a bite block was placed. The endoscope was inserted into the mouth and advanced under direct vision to the third part of duodenum. A careful inspection was made as the upper endoscope was withdrawn including a retroflexed examination of the proximal stomach; Findings and interventions are described below. Findings: Larynx:normal Esophagus: GE junction at 38 cm, diaphragm hiatus at 38 cm, with non eroisve esophagitis at GEJ. bx taken from GEJ and random esophagus in separate jars. There was also hyperemic appearance to distal esophagus which can be an early sign of inflammation and esophagitis. Stomach: Patchy gastric erythema. Biopsies were obtained. Grade 2 flap valve on retroflexed examination of the cardia. Duodenum: bulbar duodenitis, bx taken Intervention: Biopsies as noted above Impression/Findings: esophagitis duodenitis PLAN: cont with PPI and can add carafate if needed avoid cannabis,f/u o/p in 4-8 weeks if h pyloir pos then treat
--- NOTE | 2020-11-11 13:00 | MHC.CM.PN ---
Addendum entered by María Elena Wing 11/11/20 15:11: S/P EGD PER DOCUMENTATION FINDINGS WERE ESOPHAGITIS AND DUODENITIS EDUCATED ABOUT THE OBSERVATION NOTICE LEFT AT BEDSIDE WITH ATTACHED NAME CARD AND HOW TO REACH CASE MANAGEMENT OFFICE Original Note: nurse memory care program resident note ELECTRONIC MEDICAL RECORD REVIEWED ALONG WITH CASE DISCUSSED WITH STAFF NURSE , MET WITH PATIENT SHE REPORTED FEELING BETTER STILL SOME NAUSEA AND EMSIS DURNING THE NIGHT AND RECEIVED MEDICATION WITH RELIEF , PATIENT IS NOW S/P ENDOSCOPY TODAY . TEAM LEADER SURGERY TO CONTINUE TO FOLLOW DISCHARGE PLAN HOME WITH ANTICIPATED NO SERVICES PCP DR ANTONIETTA MARINO PATIENT TO CALL FOR POST HOSPITAL DISCHARGE FOLLOW UP TRANSPORTATION FAMILY WILL NEED RETURN TO WORK NOTE
--- NOTE | 2020-11-11 15:31 | PM.DS ---
DS: Providers Provider Date of Service: 11/11/20 Date of admission: 11/08/20 14:22 Primary care physician: Anika Ely MD Consults: 11/09/20 08:47 Consult to Gastroenterology Routine Consulting Provider: Giacomo Beal Reason for consultation: Intractable nausea and vomiting for your eval DS: Diagnosis Discharge Diagnosis (1) Increased anion gap metabolic acidosis: Status: Acute (2) Vomiting: Status: Acute (3) Headache: Status: Acute DS: Medications Discharge Medications Home Medications: Home Medications Medication Instructions Recorded Confirmed citalopram 10 mg tablet 10 mg PO DAILY 11/06/20 11/08/20 hydroxyzine HCl 25 mg tablet 25 mg PO DAILY 11/06/20 11/08/20 Previous Rx's Medication Instructions Recorded omeprazole 40 mg PO DAILY@0630 #30 cap 11/11/20 DS: Summary Hospital Course Hospital Course: patient was admitted for persistent nausea vomiting complicated by anion gap metabolic acidosis followed by non-anion gap metabolic acidosis. She was given bicarbonate IV and labs returned to normal. She was given antiemetics in symptoms slowly improved to the point where she was able to tolerate solid diet. Patient underwent EGD which showed esophagitis and duodenitis and patchy gastric erythema, recommendations were for PPI. Patient will follow-up with Gastroenterology in 4-8 weeks. Time Spent with Patient Time attestation: Total time spent providing and/or coordinating discharge services: Discharge coordination time: Greater than 30 minutes Quality: Stroke Does the patient have a stroke diagnosis?: No Physical Exam Vital Signs: Vital Signs: Last Vital Signs Temp 98.3 F 11/11/20 15:14 Pulse 99 11/11/20 15:14 Resp 20 11/11/20 15:14 BP 113/56 L 11/11/20 15:14 Pulse Ox 99 11/11/20 15:14 Body Mass Index 20.2 General: AO X 3, no acute distress Resp: CTA bilateral CVS: S1,S2,RRR GI: soft, non tender, non distended Neuro: motor grossly intact Psych: appropriate affect DS: Data Data Completed and Pending Pending studies at discharge: Pending at discharge 11/11/20 13:05 Surgical [PTH] Routine Labs on day of discharge: Laboratory Results - last 24 hr 11/11/20 11/11/20 11/11/20 08:51 08:51 08:51 Sodium 141 Potassium 3.5 Chloride 105 Carbon Dioxide 25 Anion Gap 15 BUN 5 L Creatinine 0.54 Estim Creat Clear Calc 111.4 Estimated GFR > 60 Random Glucose 95 Calcium 9.1 Phosphorus 4.9 H Magnesium 1.6 Discharge Plan Discharge Patient Disposition: Home, Self-Care Discharge Diagnosis: esophogitis, gastritis Referrals: Giacomo Beal MD [Physician] - 1 Week Anika Boone MD [Primary Care Provider] - 1 Week Discharge Medications: New omeprazole 40 mg Capsule,Delayed Release(Dr/Ec) 40 mg PO DAILY@0630 Qty: 30 RF: 0 Continued citalopram 10 mg tablet 10 mg PO DAILY RF: 0 hydroxyzine HCl 25 mg tablet 25 mg PO DAILY RF: 0 Discharge Orders: Discharge Order (Routine); Ordered 11/11/20 Ordered By: Ross Leos Diet: advance to usual diet Activity on Discharge: As tolerated Stand Alone Forms: Patient Portal Discharge page Care Plan Goals: Maintain hydration and nutrition Health Concerns: persistent nausea vomiting, esophagitis and gastritis Plan of Treatment: Prilosec, follow-up with GI Assessment: see above
[2020-11-11] MEDS: Sucralfate 1 GM TABLET PO (15:57)
--- NOTE | 2020-11-11 16:12 | MHC.CM.PN ---
nurse day care home provider note [id number] medical record reviewed along with case discussed with staff nurse . discharged home no services
[2020-11-12 14:31] LABS: Beta Hydroxybutyric Acid 26.3 mg/dL (0.0-3.0)
== END 2020-11-11 17:00 | disposition home or self-care (01) | DRG 241 ==
LOC: HO.ED 10:39 → HO.S3 11-10 12:59 → HO.EDOVER 11-10 13:22 → HO.S3 11-10 13:22
PROVIDERS: Internal Medicine; Internal Medicine Gastroenterology; Internal Medicine Nephrology; Admitting Provider Student in an Organized Health Care Education/Training Program; Emergency Provider Emergency Medicine; PCP Internal Medicine; Visit Provider Internal Medicine
PROC: 0DJ08ZZ Inspection of Upper Intestinal Tract, Via Natural or Artificial Opening Endoscopic (ICD-10-PCS; CPT 43235; principal; 2020-11-11 13:10)
DX: K29.80 Duodenitis without bleeding (principal); E87.2 Acidosis; K20.90 Esophagitis, unspecified without bleeding; J06.9 Acute upper respiratory infection, unspecified; F41.9 Anxiety disorder, unspecified; Z20.822 Contact with and (suspected) exposure to COVID-19; Z79.899 Other long term (current) drug therapy
CPT/HCPCS: 43239; 36415; 70470; 80048; 80051; 80076; 80307; 81001; 81003; 82550; 83605; 83690; 83735; 84100; 84702; 85025; 87635; 88305; 88342; 99218; 99285; J1200; J2405; J2765; J3010; Q9967

== ENCOUNTER 2020-12-08 11:47 | Outpatient (REF) | payer OTHER, SELFPAY ==
[2020-12-08 13:35] LABS: Thyroid Stimulating Hormone < 0.01 uIU/mL (0.32-4.0)
[2020-12-08 13:51] LABS: Erythrocyte Sedimentation Rate 8 MM/HR (0-20)
== END 2020-12-08 11:48 | disposition home or self-care (01) ==
LOC: HO.LAB 11:47
PROVIDERS: PCP Internal Medicine; Visit Provider Internal Medicine
DX: R00.0 Tachycardia, unspecified (principal)
CPT/HCPCS: 36415; 84443; 85652

== ENCOUNTER 2020-12-29 14:18 | Outpatient (REF) | payer OTHER, SELFPAY ==
[2020-12-29 16:09] LABS: Free T4 (Free Thyroxine) 2.34 ng/dL (0.71-1.85)
[2020-12-30 18:36] LABS: Thyroid Peroxidase Antibodies 1 IU/mL (<9)
[2020-12-31 02:17] LABS: Thyroglobulin Antibodies 2 IU/mL (< or = 1)
[2021-01-02 14:01] LABS: Triiodothyronine T3 Reverse 67 ng/dL (8-25)
== END 2020-12-29 14:19 | disposition home or self-care (01) ==
LOC: HO.LAB 14:18
PROVIDERS: PCP Internal Medicine; Visit Provider Internal Medicine
DX: E05.90 Thyrotoxicosis, unspecified without thyrotoxic crisis or storm (principal)
CPT/HCPCS: 36415; 84439; 84482; 86376; 86800

== ENCOUNTER 2021-01-07 16:21 | Outpatient (REF) | payer SELFPAY ==
--- NOTE | ~2021-01-07 | US_ITS ---
EXAMINATION: US THYROID CLINICAL INFORMATION: Thyrotoxicosis, unspecified without thyrotoxic crisis or storm. COMPARISON: None. TECHNIQUE: Linear transducer grayscale and color Doppler examination with attention to the region of the thyroid. FINDINGS: SIZE: Measurements of the thyroid lobes and nodules are given in sagittal, anteroposterior and transverse dimensions respectively. Right Thyroid Lobe: 4.7 x 1.2 x 1.6 cm, volume 4.9 mL. Parenchyma: The gland echotexture is heterogeneous. Thyroid vascularity is increased. Left Thyroid Lobe: 5.0 x 1.3 x 1.5 cm, volume 5.1 mL. Parenchyma: The gland echotexture is heterogeneous. Thyroid vascularity is increased. Isthmus: 0.28 cm in maximum AP dimension. No focal thyroid nodule is seen. NODES: No lymphadenopathy is seen in the tissue surrounding the thyroid gland. US/US thyroid IMPRESSION: Normal-size heterogeneous hypervascular thyroid gland. Thyroiditis and Graves' disease should be considered. No focal nodule seen..
== END 2021-01-07 16:22 | disposition home or self-care (01) ==
LOC: HO.US 16:21
PROVIDERS: Visit Provider Internal Medicine
DX: E05.90 Thyrotoxicosis, unspecified without thyrotoxic crisis or storm (principal)
CPT/HCPCS: 76536

== ENCOUNTER 2021-09-22 14:20 | Outpatient (REF) | payer OTHER, SELFPAY ==
[2021-09-22 16:00] LABS: Free T4 (Free Thyroxine) 0.99 ng/dL (0.71-1.85); Thyroid Stimulating Hormone 0.29 uIU/mL (0.32-4.0)
[2021-09-25 21:41] LABS: Thyrotropin Receptor Antibody 1.17 IU/L (<=2.00)
== END 2021-09-22 14:21 | disposition home or self-care (01) ==
LOC: HO.LAB 14:20
PROVIDERS: PCP Internal Medicine; Visit Provider Internal Medicine Endocrinology, Diabetes & Metabolism
DX: E05.90 Thyrotoxicosis, unspecified without thyrotoxic crisis or storm (principal)
CPT/HCPCS: 36415; 83520; 84439; 84443

== ENCOUNTER 2022-01-06 10:42 | Outpatient (REF) | payer OTHER, SELFPAY ==
[2022-01-06 13:39] LABS: Free T4 (Free Thyroxine) 0.87 ng/dL (0.71-1.85); Thyroid Stimulating Hormone 1.11 uIU/mL (0.32-4.0)
[2022-01-11 18:42] LABS: Thyrotropin Receptor Antibody <1.00 IU/L (<=2.00)
== END 2022-01-06 10:43 | disposition home or self-care (01) ==
LOC: HO.HMGCLDS 10:42
PROVIDERS: Visit Provider Internal Medicine Endocrinology, Diabetes & Metabolism
DX: E05.90 Thyrotoxicosis, unspecified without thyrotoxic crisis or storm (principal)
CPT/HCPCS: 36415; 83520; 84439; 84443

== ENCOUNTER 2022-02-03 11:36 | Outpatient (REF) | payer OTHER, SELFPAY ==
[2022-02-03 18:44] LABS: CT PCR NOT DETECTED (Not Detect.); NG PCR NOT DETECTED (Not Detect.)
[2022-02-04 05:15] LABS: Syphilis Screen Nonreactive (Nonreactive)
[2022-02-04 06:20] LABS: HBc Num1 0.08 S/CO (0.00-0.79); HBsAGNum1 0.18 S/CO (0.00-0.99); HIV AB/AG Nonreactive (Nonreactive); HIV Num 1 0.06 S/CO (0.00-0.99); Hepatitis A Antibody IgM 0.22 Index (0-0.79); Hepatitis B Core Antibody Nonreactive (Nonreactive); Hepatitis B Surface Antigen Negative (Negative); ~HepC Num1 0.09 S/CO (0.00-0.79); ~Hepatitis A Antibody IgM Nonreactive (Nonreactive); ~Hepatitis B Surface Antibody REACTIVE (Nonreactive); ~Hepatitis C Antibody Nonreactive (Nonreactive)
== END 2022-02-03 11:37 | disposition home or self-care (01) ==
LOC: HO.LAB 11:36
PROVIDERS: Visit Provider Internal Medicine
DX: Z11.3 Encounter for screening for infections with a predominantly sexual mode of transmission (principal)
CPT/HCPCS: 86704; 86706; 86709; 86780; 86803; 87340; 87389; 87491; 87591

== ENCOUNTER 2024-12-16 17:28 | Outpatient (AMB) | payer OTHER, SELFPAY ==
[2024-12-16 17:31] VITALS: BP 104/52; PULSE 65; O2SAT 98; BMI 26.6
--- NOTE | 2024-12-16 17:31 | MHC.PC.OV ---
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 Accompanied by: Self / Same As Patient Allergies No Known Allergies Allergy (Verified 12/16/24 17:39) Medication List - Last Reconciled 12/16/24 by Anika Ely MD citalopram 10 mg PO DAILY 90 days hydroxyzine HCl 25 mg PO DAILY methimazole (Tapazole) 5 mg PO DAILY 30 days pantoprazole 40 mg PO DAILY propranolol 10 mg PO TID Tobacco use date assessed: 12/16/24 Dental Screening Dental Screen Date: 12/16/24 Did you have a dental visit in the last 12 months?: Yes Did you have a dental problem in the last 6 months where you did not have access to dental care?: No Was dental information given to patient?: Patient has dentist HPI HPI Comments History of Present Illness Details The patient is a 34-year-old female presenting for a physical examination. She has a history of hyperthyroidism, which exacerbated during her recent , necessitating the use of propranolol earlier in the year. Currently, she manages her condition with methimazole 2.5 mg daily and follows up with an nuclear reactor technician. The patient also has a history of depression with anxiety, for which she previously took citalopram 10 mg daily. She has discontinued this medication for a few years and does not regularly use hydroxyzine, only taking it occasionally when stressed. She reports a history of heartburn, for which she used to take pantoprazole as needed, but she no longer uses it regularly. In terms of preventative care, the patient had a recent Pap smear, which was normal, and received a Tdap vaccination during her . She has no history of surgeries and her family history includes a mother with breast cancer and a father with hyperthyroidism. [facility] Medical History Hyperthyroidism Generalized anxiety disorder Surgical History No history of previous surgery Family History (Updated 12/16/24 @ 17:45 by Anika Ely MD) Mother Breast cancer Father No problems noted. Son No problems noted. Sister No problems noted. Sister No problems noted. Other Mental health disorder Social History Housing: House Alcohol intake: never Comment: feels lightheaded at times Patient Tobacco Use Status: Never used Tobacco Tobacco use type: Cigarette e-Cigarette/Vaping Use: Never Used Second Hand Smoke Exposure: No Substance Use Type: Marijuana Advance Directives Date on File: 11/08/20 service: No Current occupational status: employed Current occupation: training facilitator Current occupational exposures/hazards: No Cognitive needs: No Hearing needs: No Vision needs: No Questionnaire PHQ-9 Over the last 2 weeks, how often have you been bothered by any of the following problems? 1. Little interest or pleasure in doing things: not at all 2. Feeling down, depressed, or hopeless: not at all 3. Trouble falling or staying asleep, or sleeping too much: not at all 4. Feeling tired or having little energy: not at all 5. Poor appetite or overeating: not at all 6. Feeling bad about yourself - or that you are a failure or have let yourself or your family down: not at all 7. Trouble concentrating on things, such as reading the newspaper or watching television: not at all 8. Moving or speaking so slowly that other people could have noticed. Or the opposite - being so fidgety or restless that you have been moving around a lot more than usual: not at all 9. Thoughts that you would be better off or of hurting yourself in some way: not at all Total score: 0 Depression Screening Interpretation: Negative Depression Screening Done: Yes 52412 - PHQ-9 Billing: Yes Source: Developed by Drs. Ricky Brewer, Radha Mccurdy, Aayush Almanza and colleagues, with an educational yolanda from [employer]. Thrive Questionnaire Date Thrive assessed: 12/16/24 I am a: Patient What is your living situation today?: I have a steady place to live Within the past 12 months, did the food you bought not last and you didn't have the money to get more?: Never true Within the past 12 months, did you worry whether your food would run out before you got money to buy more?: Never true Do you have trouble paying for medicines?: No Do you have trouble getting transportation to medical appointments?: No Do you have trouble paying your heating and electricity bill?: No Do you have trouble taking care of your child, family member or friend?: No Do you have trouble with day-to-day activities such as bathing, preparing meals, shopping, managing finances, etc.?: No Are you currently unemployed and looking for a job?: No Are you interested in more education?: No Please select the resources that you would like help with: None Currently or been in a relationship where the following occur: No concerns reported THRIVE Score: 0 AUDIT C Alcohol Use Questionnaire (AUDIT-C) 1. How often do you have a drink containing alcohol?: Never 3. How often do you have six or more drinks on one occasion?: Never Total Score: 0 Score Reviewed/Action Taken: No GIANNI-7 AMB Questionnaire GIANNI-7 Date GIANNI - 7 assessed: 12/16/24 Feeling nervous, anxious, or on edge: 0 = Not at all Not being able to stop or control worryin = Not at all Worrying too much about different things: 0 = Not at all Trouble relaxin = Not at all Being so restless that it is hard to sit still: 0 = Not at all Becoming easily annoyed or irritable: 0 = Not at all Feeling afraid as if something awful might happen: 0 = Not at all Total GIANNI-7 score (0-4 normal; 5-9 mild; 10-14 moderate; 15-21 severe): 0 Source: Developed by Drs. Ricky Brewer, Radha Mccurdy, Aayush Almanza and colleagues, with an educational yolanda from [employer]. GIANNI-7 Assessment Billing GIANNI-7 Assessment Tool: GIANNI-7 Assessment 43002 Review of Systems Const All systems reviewed & are unremarkable except as noted in HPI and below Card Denies chest pain at rest, Denies chest pain with activity, Denies edema, Denies irregular heart rhythm, Denies claudication, Denies dyspnea, Denies dyspnea on exertion, Denies orthopnea, Denies paroxysmal nocturnal dyspnea and Denies slow heart rate Resp Denies cough, Denies dyspnea and Denies dyspnea on exertion GI Denies abdominal pain, Denies change in bowel habits, Denies excessive flatus, Denies nausea and Denies vomiting Denies urinary incontinence, Denies urinary hesitancy and Denies urinary urgency Physical exam (Primary Care) Vital Signs: Last Vital Signs Pulse 65 12/16/24 17:31 BP 104/52 L 12/16/24 17:31 Pulse Ox 98 12/16/24 17:31 Oxygen Delivery Method Room Air 12/16/24 17:31 BMI result Body Mass Index 26.6 Tobacco/Smoking Status: Tobacco use Status Tobacco use date assessed 12/16/24 12/16/24 17:37 Patient Tobacco Use Status Never used Tobacco 12/16/24 17:37 Tobacco use type Cigarette 12/16/24 17:37 e-Cigarette/Vaping Use Never Used 12/16/24 17:37 PHQ-9: PHQ-9 Score PHQ-9: Total score 0 12/16/24 17:43 Depression Screening Interpretation: Negative Thrive Assessment: Date of Thrive Assessment Date Thrive assessed 12/16/24 12/16/24 17:37 Currently or been in a relationship where the following occur: No concerns reported [facility] Head: Yes normal to inspection, Yes normocephalic and Yes atraumatic Ears: external ears normal Eyes General: appearance normal, both eyes and all related structures Eyelids: Yes eyelids normal Conjunctivae: conjunctivae normal Neck Neck: Yes normal visual inspection and Yes supple Resp Effort & Inspection: normal respiratory effort Auscultation: clear to auscultation bilaterally Cardio Jugular venous distension: no JVD Rate: regular rate Rhythm: regular rhythm Heart sounds: S1 normal heart sound present and S2 normal heart sound present GI Inspection: Yes normal to inspection Palpation (GI): Soft to palpation and nontender Auscultation: normal bowel sounds Skin General skin exam: no rashes or lesions noted Neuro General: no focal motor deficits Extrem General: Yes full ROM Psych Appearance: grossly normal Coding Level of Care Code Est Pt Prev Care 18-39y(54535) Diagnoses Physical exam Z00.00 Additional Codes GIANNI-7 Assessment Billing - GIANNI-7 Assessment Tool: GIANNI-7 Assessment 97904 ([id number]) PHQ-9 - 80164 - PHQ-9 Billing: Yes ([id number]) Time Spent (min) 30 Assessment & Plan Assessment & Plan (1) Physical exam: Code(s): Z00.00 - Encounter for general adult medical examination without abnormal findings Category: Medical Plan The patient will undergo fasting laboratory tests to evaluate cholesterol, glucose, renal, and hepatic function, as it has been a significant time since her last blood work in 2020. The results will be mailed to the patient, with any necessary comments included. Patient was informed and verbally consented to the use of an ambient scribe for clinic note documentation during this visit. Orders: Orders Comprehensive Russell. Panel Fast Today Z00.00 - Encounter for general adult medical examination without abnormal findings Lipid Panel Today Z00.00 - Encounter for general adult medical examination without abnormal findings Medications: Changed From methimazole (Tapazole) 5 mg PO DAILY 30 days 30 tabs 1RF E05.90 - Thyrotoxicosis, unspecified without thyrotoxic crisis or storm To methimazole 2.5 mg (1/2 x 5 mg) PO DAILY 15 tabs 1RF 30 days E05.90 - Thyrotoxicosis, unspecified without thyrotoxic crisis or storm Discontinued citalopram Discontinued Reason: Patient Completed Course 10 mg PO DAILY 90 days 90 tabs 3RF propranolol Discontinued Reason: Patient Completed Course 10 mg PO TID 90 tabs 0RF
== END 2024-12-16 17:50 | disposition home or self-care (01) ==
LOC: HO.HMCH 17:29
PROVIDERS: PCP Internal Medicine; Visit Provider Internal Medicine
DX: Z00.00 Encounter for general adult medical examination without abnormal findings (principal)

== ENCOUNTER → 2024-12-16 17:28 | Outpatient (BNVA) | payer OTHER, SELFPAY | PROVIDERS: PCP Internal Medicine; Visit Provider Internal Medicine | DX: Z00.00 Encounter for general adult medical examination without abnormal findings (principal); E05.90 Thyrotoxicosis, unspecified without thyrotoxic crisis or storm; F32.A Depression, unspecified; F41.9 Anxiety disorder, unspecified; Z79.899 Other long term (current) drug therapy | CPT/HCPCS: 96127 ==